=== PATIENT | male | born 1950 | race Caucasian/White ===

== ENCOUNTER 2019-02-08 14:15 | Emergency (ER) | payer MEDICARE, SELFPAY ==
[2019-02-08 14:27] VITALS: BP 163/72; PULSE 104; RESP 20; TEMP 37.2; O2SAT 100; BMI 23.6
[2019-02-08] MEDS: SODIUM CHLORIDE 0.9% 1,000 ML 1000 ML IV ×4 (14:51→18:27)
[2019-02-08] MEDS: ONDANSETRON 4 MG/2 ML INJ IV (14:51)
--- NOTE | 2019-02-08 14:56 | ED.NAVMDI ---
HPI - Nausea/Vomiting/Diarrhea General Chief complaint: Nausea/Vomiting/Diarrhea Stated complaint: vomiting x2 wks Time Seen by Provider: 02/08/19 14:21 Source: patient Mode of arrival: ambulatory Limitations: no limitations History of Present Illness HPI Narrative: Patient comes to the emergency department complaining of vomiting and watery diarrhea for the last 2 weeks. He states the symptoms started just after he returned from 2 weeks in the [place], after which he had been traveling in [place] and other parts of [place] for 2 and half months prior. Patient denies fevers or abdominal pain. He states that before the vomiting and diarrhea started, he had fatigue for several days. Patient states that he has not had any blood in his vomitus or diarrhea. He states he has lost quite a bit of weight, due to not being able to keep any food down. Patient states he can keep some liquids down occasionally, but not consistently. Patient denies any back pain or urinary symptoms. No headache. No focal neurologic deficits. No visual changes. Patient states he does not have any ongoing medical problems, though he was declared to be a borderline diabetic several years ago, and believes he had a TIA also several years ago. Patient states he was worked up in the [place] for these things, as he was there at that time, also. Patient denies taking any chronic medications for anything. He has [employer], and has spent much of his life living in [place] and [place] [facility]. Patient states this is the 1st time he sought any medical evaluation for this. Related Data Allergies Allergy/AdvReac Type Severity Reaction Status Date / Time No Known Drug Allergies Allergy Verified 02/08/19 14:45 Review of Systems Constitutional Denies chills, Denies fever(s), Denies lethargy and Denies weakness Eyes Denies change in vision, Denies eye discharge, Denies irritation and Denies loss of vision ENT Ears, Nose, Mouth, and Throat: Denies change in voice, Denies neck pain and Denies sore throat Cardiovascular Denies chest pain, Denies irregular heart rhythm, Denies lightheadedness, Denies palpitations, Denies dyspnea, Denies dyspnea on exertion and Denies orthopnea Respiratory Denies cough, Denies dyspnea, Denies dyspnea on exertion and Denies wheezing Gastrointestinal Gastrointestinal: Denies abdominal pain, Denies change in bowel habits, Reports diarrhea, Reports nausea and Reports vomiting Genitourinary Denies hematuria, Denies flank pain, Denies urinary incontinence and Denies urinary urgency Musculoskeletal Denies neck pain Integumentary/Breasts Denies pruritus, Denies erythema, Denies rash and Denies wounds Neurologic Denies confusion, Denies loss of vision and Denies weakness Psychiatric Denies anxiety, Denies confusion, Denies depression, Denies homicidal ideation and Denies suicidal ideation Endocrine Denies palpitations Hematologic/Lymphatic Denies easy bruising Allergic/Immunologic Denies wheezing [facility] Medical History TIA (transient ischemic attack) (Acute) Borderline diabetes mellitus (Acute) Surgical History (Updated 02/08/19 @ 15:10 by Bessy Elias MD) No pertinent past surgical history (Acute) Social History Smoking Status: Never smoker Social History Smoking Status: Never smoker Exam Initial Vital Signs Initial Vital Signs: Vital Signs Temperature 99.0 F 02/08/19 14:27 Pulse Rate 104 H 02/08/19 14:27 Respiratory Rate 20 02/08/19 14:27 Blood Pressure 163/72 H 02/08/19 14:27 Pulse Oximetry 100 02/08/19 14:27 Course Course Narrative: Patient was worked up with laboratory studies, EKG, chest x-ray, and ultimately, CT scan of the abdomen and pelvis. The patient was found to have an elevated white count [address]306, as well as renal failure with a BUN of 65 and a creatinine of 5.5. Patient's urinalysis was positive for infection and a non contaminated sample. His chest x-ray was clear. Patient was given IV fluid boluses back to back, and was treated with Zofran. Stool studies were ordered, but patient was unable to give us a stool sample. I spoke with Infectious Disease specialist at [facility], regarding any possible exotic infections to consider, given the patient's recent travel, but she did not have any specific ideas. I felt the patient should be transferred to a facility with Nephrology specialty service, as well as possibly Infectious Disease. I spoke with Dr. Quiroz at [facility] in [place], and he did agree to accept the patient in transfer. Per his request a CT scan of the abdomen and pelvis was done and results came back just as patient was being transferred. This did show mildly enlarged bilateral kidney with severe bilateral hydronephrosis and hydroureter extending all the way to the bilateral UVJ. The bladder wall was also found to be thickened and lobulated, suggesting chronic urinary outlet obstruction. Clearly, this patient will need to be evaluated by Urology while admitted, as well. The radiologist has not made any specific suggestion of cancer, though this possibility will most likely need to be addressed. I did speak with the patient regarding the plan to transfer and after initially objecting, the patient did ultimately agree to the transfer. Remained hemodynamically stable throughout his stay in the emergency department. Orders Ordered: ED Orders 02/08/19 14:46 Complete Blood Count AUTO DIFF Stat Comprehensive Metabolic Panel Stat Lipase Stat Partial Thromboplastin Time Stat Prothrombin Time INR Stat EKG-12 Lead Stat 02/08/19 14:57 Stool Culture Stat 02/08/19 15:35 Blood Culture Stat 02/08/19 16:00 Urinalysis and Microscopic Stat Urine Culture Stat 02/08/19 16:20 XR chest 2V Stat 02/08/19 17:10 CT kidney ureter bladder (KUB) Stat Sodium Chloride (Normal Saline 0.9%) 1,000 mls @ 1,000 mls/hr IV BOLUS ONE Stop: 02/08/19 19:25 Last Infusion: 02/08/19 18:27 Dose: 1,000 mls/hr Admin: 02/08/19 18:27 Dose: 1,000 mls/hr Discontinued Medications Sodium Chloride (Normal Saline 0.9%) 1,000 mls @ 1,000 mls/hr IV BOLUS ONE Stop: 02/08/19 15:46 Last Infusion: 02/08/19 15:45 Dose: 0 mls/hr Admin: 02/08/19 14:51 Dose: 1,000 mls/hr Sodium Chloride (Normal Saline 0.9%) 1,000 mls @ 1,000 mls/hr IV BOLUS ONE Stop: 02/08/19 15:56 Last Infusion: 02/08/19 16:37 Dose: 0 mls/hr Admin: 02/08/19 15:44 Dose: 1,000 mls/hr Sodium Chloride (Normal Saline 0.9%) 1,000 mls @ 1,000 mls/hr IV BOLUS ONE Stop: 02/08/19 17:19 Last Infusion: 02/08/19 17:30 Dose: 0 mls/hr Admin: 02/08/19 16:38 Dose: 1,000 mls/hr Ceftriaxone Sodium/Dextrose (Rocephin) 2 gm in 50 mls @ 100 mls/hr IV NOW ONE Stop: 02/08/19 17:41 Last Infusion: 02/08/19 17:53 Dose: 0 mls/hr Admin: 02/08/19 17:17 Dose: 100 mls/hr Ondansetron HCl (Zofran) 4 mg IV NOW ONE Stop: 02/08/19 14:48 Last Admin: 02/08/19 14:51 Dose: 4 mg Vital Signs - 8 hr 02/08/19 14:27 02/08/19 15:22 02/08/19 16:00 Temperature 99.0 F Pulse Rate 104 H 97 H 95 H Respiratory Rate 20 18 18 Blood Pressure 163/72 H Blood Pressure [Right Arm] 144/60 H 147/59 H Pulse Oximetry 100 98 95 02/08/19 18:36 Temperature Pulse Rate 96 H Respiratory Rate 20 Blood Pressure 160/63 H Blood Pressure [Right Arm] Pulse Oximetry 97 MDM - Nausea/Vomiting/Diarrhea Medical Records Attestation: I reviewed the patient's medical records. Lab Data Attestation: I reviewed the patient's lab results. Result diagrams: 02/08/19 14:46 02/08/19 14:46 Lab Results 02/08/19 02/08/19 02/08/19 Range/Units 14:46 14:46 14:46 WBC 23.9 H (4.5-11.0) X10^3/uL RBC 4.54 (4.5-5.9) X10^6/uL Hgb 12.4 L (13.5-17.5) g/dL Hct 38.4 L (41-53) % MCV 84.7 (80-100) fL MCH 27.5 (26-34) PG MCHC 32.4 (30-36) % RDW 12.7 (11.6-14.8) % Plt Count 420 H (150-400) X10^3/uL Neut % (Auto) 86.5 H (50-75) % Lymph % (Auto) 5.8 L (25-40) % [place] % (Auto) 7.4 (3-14) % Eos % (Auto) 0.1 L (2-4) % Baso % (Auto) 0.2 (0-2) % Neut # (Auto) 59962 H (1565-2586) /uL Lymph # (Auto) 1400 (7091-9788) /uL [place] # (Auto) 1800 H (0-900) /uL Eos # (Auto) 0 (0-450) /uL Baso # (Auto) 100 (0-100) /uL PT 13.5 H (10.1-12.7) SECONDS INR 1.2 (0.9-1.3) APTT 29 (26.4-36.2) SECONDS Sodium 133 L (137-145) mmol/L Potassium 5.7 H (3.4-5.1) mmol/L Chloride 97 L (98-107) mmol/L Carbon Dioxide 21 L (22-32) mmol/L BUN 65 H (9-20) mg/dL Creatinine 5.50 H (0.66-1.25) mg/dL Estimated GFR 10.4 L (>60) mL/min BUN/Creatinine Ratio 11.8 (6-22) Glucose 194 H (80-110) mg/dL Calcium 8.8 (8.4-10.2) mg/dL Total Bilirubin 0.5 (0.2-1.3) mg/dL AST 13 L (17-59) IU/L ALT 23 (21-72) IU/L Alkaline Phosphatase 111 (38-126) U/L Total Protein 8.2 (6.3-8.2) g/dL Albumin 4.0 (3.5-5.0) g/dL Globulin 4.2 H (1.7-4.1) g/dL Albumin/Globulin Ratio 1.0 (1.0-2.8) Lipase 102 (23-300) U/L Urine Color Urine Appearance Urine pH (4.5-8.0) Ur Specific [place] (1.000-1.035) Urine Protein (Negative) Urine Glucose (UA) (Negative) g/dL Urine Ketones (NEGATIVE) Urine Occult Blood (Negative) Urine Nitrate (Negative) Urine Bilirubin (NEGATIVE) Urine Urobilinogen (0.2) E.U./dL Ur Leukocyte Esterase (NEGATIVE) Urine RBC (0-5/HPF) Urine WBC (0-5/HPF) Ur Squamous Epith Cells Urine Bacteria (None) Ur Culture Indicated? 02/08/19 Range/Units 16:00 WBC (4.5-11.0) X10^3/uL RBC (4.5-5.9) X10^6/uL Hgb (13.5-17.5) g/dL Hct (41-53) % MCV (80-100) fL MCH (26-34) PG MCHC (30-36) % RDW (11.6-14.8) % Plt Count (150-400) X10^3/uL Neut % (Auto) (50-75) % Lymph % (Auto) (25-40) % [place] % (Auto) (3-14) % Eos % (Auto) (2-4) % Baso % (Auto) (0-2) % Neut # (Auto) (8487-5709) /uL Lymph # (Auto) (7593-8934) /uL Boone # (Auto) (0-900) /uL Eos # (Auto) (0-450) /uL Baso # (Auto) (0-100) /uL PT (10.1-12.7) SECONDS INR (0.9-1.3) APTT (26.4-36.2) SECONDS Sodium (137-145) mmol/L Potassium (3.4-5.1) mmol/L Chloride (98-107) mmol/L Carbon Dioxide (22-32) mmol/L BUN (9-20) mg/dL Creatinine (0.66-1.25) mg/dL Estimated GFR (>60) mL/min BUN/Creatinine Ratio (6-22) Glucose (80-110) mg/dL Calcium (8.4-10.2) mg/dL Total Bilirubin (0.2-1.3) mg/dL AST (17-59) IU/L ALT (21-72) IU/L Alkaline Phosphatase (38-126) U/L Total Protein (6.3-8.2) g/dL Albumin (3.5-5.0) g/dL Globulin (1.7-4.1) g/dL Albumin/Globulin Ratio (1.0-2.8) Lipase (23-300) U/L Urine Color Yellow Urine Appearance Cloudy Urine pH 6.0 (4.5-8.0) Ur Specific [place] 1.010 (1.000-1.035) Urine Protein 1+ H (Negative) Urine Glucose (UA) Negative (Negative) g/dL Urine Ketones Negative (NEGATIVE) Urine Occult Blood 1+ H (Negative) Urine Nitrate Negative (Negative) Urine Bilirubin Negative (NEGATIVE) Urine Urobilinogen 0.2 (0.2) E.U./dL Ur Leukocyte Esterase 3+ H (NEGATIVE) Urine RBC None seen (0-5/HPF) Urine WBC >100/hpf H (0-5/HPF) Ur Squamous Epith Cells 0-1 /hpf Urine Bacteria Many (>30) H (None) Ur Culture Indicated? Specimen cultured Imaging Data CT scan - abdomen: Radiologist's impression: PROCEDURE: CT KIDNEY URETER BLADDER (KUB) INDICATIONS: vomiting, diarrhea, exotic travel TECHNIQUE: Noncontrast 5 mm thick sections acquired from the diaphragms to the symphysis. 5 mm thick coronal and sagittal reformats were then performed. For radiation dose reduction, the following was used: automated exposure control, adjustment of mA and/or kV according to patient size. COMPARISON: None. FINDINGS: Image quality: Excellent. Lung bases: Lung bases are clear. Heart size is normal. Urinary system: Both kidneys are enlarged in size. Severe bilateral hydronephrosis and mild bilateral perinephric fat stranding is seen. No obstructing renal stone is identified. Bilateral ureters are diffusely dilated throughout their expected courses. Lobulated urinary bladder wall with diffuse wall thickening is seen, no discrete bladder wall mass is noted. No calcified bladder stones. Other solid organs: Liver is normal in size. Gallbladder is within normal limits. Pancreas is normal in contours. Spleen is normal in size. No adrenal nodules. Peritoneum and bowel: Unenhanced bowel loops demonstrate normal wall thickness and caliber. No free fluid or air. Appendix is visualized and is within normal limits. Nodes and vessels: No retroperitoneal or mesenteric adenopathy by size criteria. Aorta and inferior vena cava are normal in caliber. Abdominal wall: No ventral hernias. Pelvis: No free pelvic fluid. No inguinal hernias or adenopathy. Bones: No suspicious bony lesions. No vertebral body compression fractures. IMPRESSION: 1. Mildly enlarged bilateral kidney with severe bilateral hydronephrosis and hydroureter extending to the level of bilateral UVJs. No obstructing renal stone or ureteral stone is seen. Lobulated bladder contour with diffuse wall thickening. Finding is suggestive of chronic urinary outlet obstruction. 2. No bowel obstruction. Normal appendix. No free fluid or free air. Dictated by: Randolph Young M.D. on 02/08/2019 at 17:50 Approved by: Randolph Young M.D. on 02/08/2019 at 17:58 Chest x-ray: Attestation: I personally reviewed and interpreted this imaging study as follows: My impression: No acute disease Radiologist's impression: PROCEDURE: XR CHEST 2V INDICATIONS: cough TECHNIQUE: 2 views of the chest were acquired. COMPARISON: None. FINDINGS: Surgical changes and devices: None. Lungs and pleura: Lungs are clear. No pleural effusions or pneumothorax. Mediastinum: Mediastinal contours are normal. Heart size is normal. Bones and chest wall: No suspicious bony abnormalities. Soft tissues appear unremarkable. IMPRESSION: No acute cardiopulmonary disease process. Dictated by: Ary Harris MD, PhD on 02/08/2019 at 16:37 Approved by: Ary Harris MD, PhD on 02/08/2019 at 16:38 ECG Data Attestation: I personally reviewed and interpreted this ECG as follows: (See below) Interpretation: Twelve lead EKG performed February 08, 2019 at 2:49 p.m., as follows: Regular ventricular rhythm with a rate of 104 beats per minute P waves present and correlating well with QRS complexes QRS duration 89 millisecond QTC interval 370 millisecond Normal axis No ST T wave changes Interpretation: Sinus tachycardia; disagree with computer interpretation of atrial flutter; abnormal EKG as interpreted by ED MD. Discharge Plan Departure Interventions: ED Discharge Assessment Last Done: 02/08/19 18:36
[2019-02-08 15:02] LABS: Add Manual Diff / Slide Review NO; Basophils Absolute Auto 100 /uL (0-100); Basophils Percent Auto 0.2 % (0-2); Eosinophils Absolute Auto 0 /uL (0-450); Eosinophils Percent Auto 0.1 % (2-4); Hematocrit 38.4 % (41-53); Hemoglobin 12.4 g/dL (13.5-17.5); Lymphocytes Absolute Auto 1400 /uL (1100-4500); Lymphocytes Percent Auto 5.8 % (25-40); Mean Corpuscular HGB Conc 32.4 % (30-36); Mean Corpuscular Hemoglobin 27.5 PG (26-34); Mean Corpuscular Volume 84.7 fL (80-100); Monocytes Absolute Auto 1800 /uL (0-900); Monocytes Percent Auto 7.4 % (3-14); Neutrophils Absolute Auto 20600 /uL (1500-7000); Neutrophils Percent Auto 86.5 % (50-75); Platelet Count 420 X10^3/uL (150-400); Red Blood Cell Count 4.54 X10^6/uL (4.5-5.9); Red Cell Distribution Width 12.7 % (11.6-14.8); White Blood Cell Count 23.9 X10^3/uL (4.5-11.0)
[2019-02-08 15:03] LABS: INR 1.2 (0.9-1.3); Prothrombin Time 13.5 SECONDS (10.1-12.7)
[2019-02-08 15:06] LABS: PTT Partial Thromboplastin Tim 29 SECONDS (26.4-36.2)
--- NOTE | 2019-02-08 15:07 | ED_ITS ---
HPI - Nausea/Vomiting/Diarrhea General Chief complaint: Nausea/Vomiting/Diarrhea Stated complaint: vomiting x2 wks Time Seen by Provider: 02/08/19 14:21 Source: patient Mode of arrival: ambulatory Limitations: no limitations History of Present Illness HPI Narrative: Patient comes to the emergency department complaining of vomiting and watery diarrhea for the last 2 weeks. He states the symptoms started just after he returned from 2 weeks in the [place], after which he had been traveling in [place] and other parts of [place] for 2 and half months prior. Patient denies fevers or abdominal pain. He states that before the vomiting and diarrhea started, he had fatigue for several days. Patient states that he has not had any blood in his vomitus or diarrhea. He states he has lost quite a bit of weight, due to not being able to keep any food down. Patient states he can keep some liquids down occasionally, but not consistently. Patient denies any back pain or urinary symptoms. No headache. No focal neurologic deficits. No visual changes. Patient states he does not have any ongoing medical problems, though he was declared to be a borderline diabetic several years ago, and believes he had a TIA also several years ago. Patient states he was worked up in the [place] for these things, as he was there at that time, also. Patient denies taking any chronic medications for anything. He has [employer], and has spent much of his life living in [place] and [facility]. Patient states this is the 1st time he sought any medical evaluation for this. Related Data Allergies Allergy/AdvReac Type Severity Reaction Status Date / Time No Known Drug Allergies Allergy Verified 02/08/19 14:45 Review of Systems Constitutional Denies chills, Denies fever(s), Denies lethargy and Denies weakness Eyes Denies change in vision, Denies eye discharge, Denies irritation and Denies loss of vision ENT Ears, Nose, Mouth, and Throat: Denies change in voice, Denies neck pain and Denies sore throat Cardiovascular Denies chest pain, Denies irregular heart rhythm, Denies lightheadedness, Denies palpitations, Denies dyspnea, Denies dyspnea on exertion and Denies orthopnea Respiratory Denies cough, Denies dyspnea, Denies dyspnea on exertion and Denies wheezing Gastrointestinal Gastrointestinal: Denies abdominal pain, Denies change in bowel habits, Reports diarrhea, Reports nausea and Reports vomiting Genitourinary Denies hematuria, Denies flank pain, Denies urinary incontinence and Denies uri nary urgency Musculoskeletal Denies neck pain Integumentary/Breasts Denies pruritus, Denies erythema, Denies rash and Denies wounds Neurologic Denies confusion, Denies loss of vision and Denies weakness Psychiatric Denies anxiety, Denies confusion, Denies depression, Denies homicidal ideation and Denies suicidal ideation Endocrine Denies palpitations Hematologic/Lymphatic Denies easy bruising Allergic/Immunologic Denies wheezing [facility] Medical History TIA (transient ischemic attack) (Acute) Borderline diabetes mellitus (Acute) Surgical History (Updated 02/08/19 @ 15:10 by Bessy Elias MD) No pertinent past surgical history (Acute) Social History Smoking Status: Never smoker Social History Smoking Status: Never smoker Exam Initial Vital Signs Initial Vital Signs: Vital Signs Temperature 99.0 F 02/08/19 14:27 Pulse Rate 104 H 02/08/19 14:27 Respiratory Rate 20 02/08/19 14:27 Blood Pressure 163/72 H 02/08/19 14:27 Pulse Oximetry 100 02/08/19 14:27 Course Course Narrative: Patient was worked up with laboratory studies, EKG, chest x- ray, and ultimately, CT scan of the abdomen and pelvis. The patient was found to have an elevated white count [address]04, as well as renal failure with a BUN of 65 and a creatinine of 5.5. Patient's urinalysis was positive for infection and a non contaminated sample. His chest x-ray was clear. Patient was given IV fluid boluses back to back, and was treated with Zofran. Stool studies were ordered, but patient was unable to give us a stool sample. I spoke with Infectious Disease specialist at [facility], regarding any possible exotic infections to consider, given the patient's recent travel, but she did not have any specific ideas. I felt the patient should be transferred to a facility with Nephrology specialty service, as well as possibly Infectious Disease. I spoke with Dr. Quiroz at [facility] in [place], and he did agree to accept the patient in transfer. Per his request a CT scan of the abdomen and pelvis was done and results came back just as patient was being transferred. This did show mildly enlarged bilateral kidney with severe bilateral hydronephrosis and hydroureter extending all the way to the bilateral UVJ. The bladder wall was also found to be thickened and lobulated, suggesting chronic urinary outlet obstruction. Clearly, this patient will need to be evaluated by Urology while admitted, as well. The radiologist has not made any specific suggestion of cancer, though this possibility will most likely need to be addressed. I did speak with the patient regarding the plan to transfer and after initially objecting, the patient did ultimately agree to the transfer. Remained hemodynamically stable throughout his stay in the emergency department. Orders Ordered: ED Orders 02/08/19 14:46 Complete Blood Count AUTO DIFF Stat Comprehensive Metabolic Panel Stat Lipase Stat Partial Thromboplastin Time Stat Prothrombin Time INR Stat EKG-12 Lead Stat 02/08/19 14:57 Stool Culture Stat 02/08/19 15:35 Blood Culture Stat 02/08/19 16:00 Urinalysis and Microscopic Stat Urine Culture Stat 02/08/19 16:20 XR chest 2V Stat 02/08/19 17:10 CT kidney ureter bladder (KUB) Stat Sodium Chloride (Normal Saline 0.9%) 1,000 mls @ 1,000 mls/hr IV BOLUS ONE Stop: 02/08/19 19:25 Last Infusion: 02/08/19 18:27 Dose: 1,000 mls/hr Admin: 02/08/19 18:27 Dose: 1,000 mls/hr Discontinued Medications Sodium Chloride (Normal Saline 0.9%) 1,000 mls @ 1,000 mls/hr IV BOLUS ONE Stop: 02/08/19 15:46 Last Infusion: 02/08/19 15:45 Dose: 0 mls/hr Admin: 02/08/19 14:51 Dose: 1,000 mls/hr Sodium Chloride (Normal Saline 0.9%) 1,000 mls @ 1,000 mls/hr IV BOLUS ONE Stop: 02/08/19 15:56 Last Infusion: 02/08/19 16:37 Dose: 0 mls/hr Admin: 02/08/19 15:44 Dose: 1,000 mls/hr Sodium Chloride (Normal Saline 0.9%) 1,000 mls @ 1,000 mls/hr IV BOLUS ONE Stop: 02/08/19 17:19 Last Infusion: 02/08/19 17:30 Dose: 0 mls/hr Admin: 02/08/19 16:38 Dose: 1,000 mls/hr Ceftriaxone Sodium/Dextrose (Rocephin) 2 gm in 50 mls @ 100 mls/hr IV NOW ONE Stop: 02/08/19 17:41 Last Infusion: 02/08/19 17:53 Dose: 0 mls/hr Admin: 02/08/19 17:17 Dose: 100 mls/hr Ondansetron HCl (Zofran) 4 mg IV NOW ONE Stop: 02/08/19 14:48 Last Admin: 02/08/19 14:51 Dose: 4 mg Vital Signs - 8 hr 02/08/19 14:27 02/08/19 15:22 02/08/19 16:00 Temperature 99.0 F Pulse Rate 104 H 97 H 95 H Respiratory Rate 20 18 18 Blood Pressure 163/72 H Blood Pressure [Right Arm] 144/60 H 147/59 H Pulse Oximetry 100 98 95 02/08/19 18:36 Temperature Pulse Rate 96 H Respiratory Rate 20 Blood Pressure 160/63 H Blood Pressure [Right Arm] Pulse Oximetry 97 MDM - Nausea/Vomiting/Diarrhea Medical Records Attestation: I reviewed the patient's medical records. Lab Data Attestation: I reviewed the patient's lab results. Result diagrams: 02/08/19 14:46 02/08/19 14:46 Lab Results 02/08/19 02/08/19 02/08/19 Range/Units 14:46 14:46 14:46 WBC 23.9 H (4.5-11.0) X10^3/uL RBC 4.54 (4.5-5.9) X10^6/uL Hgb 12.4 L (13.5-17.5) g/dL Hct 38.4 L (41-53) % MCV 84.7 (80-100) fL MCH 27.5 (26-34) PG MCHC 32.4 (30-36) % RDW 12.7 (11.6-14.8) % Plt Count 420 H (150-400) X10^3/uL Neut % (Auto) 86.5 H (50-75) % Lymph % (Auto) 5.8 L (25-40) % [place]bot % (Auto) 7.4 (3-14) % Eos % (Auto) 0.1 L (2-4) % Baso % (Auto) 0.2 (0-2) % Neut # (Auto) 35404 H (3534-1244) /uL Lymph # (Auto) 1400 (8572-3252) /uL Talbot # (Auto) 1800 H (0-900) /uL Eos # (Auto) 0 (0-450) /uL Baso # (Auto) 100 (0-100) /uL PT 13.5 H (10.1-12.7) SECONDS INR 1.2 (0.9-1.3) APTT 29 (26.4-36.2) SECONDS Sodium 133 L (137-145) mmol/L Potassium 5.7 H (3.4-5.1) mmol/L Chloride 97 L (98-107) mmol/L Carbon Dioxide 21 L (22-32) mmol/L BUN 65 H (9-20) mg/dL Creatinine 5.50 H (0.66-1.25) mg/dL Estimated GFR 10.4 L (>60) mL/min BUN/Creatinine Ratio 11.8 (6-22) Glucose 194 H (80-110) mg/dL Calcium 8.8 (8.4-10.2) mg/dL Total Bilirubin 0.5 (0.2-1.3) mg/dL AST 13 L (17-59) IU/L ALT 23 (21-72) IU/L Alkaline Phosphatase 111 (38-126) U/L Total Protein 8.2 (6.3-8.2) g/dL Albumin 4.0 (3.5-5.0) g/dL Globulin 4.2 H (1.7-4.1) g/dL Albumin/Globulin Ratio 1.0 (1.0-2.8) Lipase 102 (23-300) U/L Urine Color Urine Appearance Urine pH (4.5-8.0) Ur Specific [place] (1.000-1.035) Urine Protein (Negative) Urine Glucose (UA) (Negative) g/dL Urine Ketones (NEGATIVE) Urine Occult Blood (Negative) Urine Nitrate (Negative) Urine Bilirubin (NEGATIVE) Urine Urobilinogen (0.2) E.U./dL Ur Leukocyte Esterase (NEGATIVE) Urine RBC (0-5/HPF) Urine WBC (0-5/HPF) Ur Squamous Epith Cells Urine Bacteria (None) Ur Culture Indicated? 02/08/19 Range/Units 16:00 WBC (4.5-11.0) X10^3/uL RBC (4.5-5.9) X10^6/uL Hgb (13.5-17.5) g/dL Hct (41-53) % MCV (80-100) fL MCH (26-34) PG MCHC (30-36) % RDW (11.6-14.8) % Plt Count (150-400) X10^3/uL Neut % (Auto) (50-75) % Lymph % (Auto) (25-40) % [place] % (Auto) (3-14) % Eos % (Auto) (2-4) % Baso % (Auto) (0-2) % Neut # (Auto) (7044-6828) /uL Lymph # (Auto) (8814-2689) /uL Talbot # (Auto) (0-900) /uL Eos # (Auto) (0-450) /uL Baso # (Auto) (0-100) /uL PT (10.1-12.7) SECONDS INR (0.9-1.3) APTT (26.4-36.2) SECONDS Sodium (137-145) mmol/L Potassium (3.4-5.1) mmol/L Chloride (98-107) mmol/L Carbon Dioxide (22-32) mmol/L BUN (9-20) mg/dL Creatinine (0.66-1.25) mg/dL Estimated GFR (>60) mL/min BUN/Creatinine Ratio (6-22) Glucose (80-110) mg/dL Calcium (8.4-10.2) mg/dL Total Bilirubin (0.2-1.3) mg/dL AST (17-59) IU/L ALT (21-72) IU/L Alkaline Phosphatase (38-126) U/L Total Protein (6.3-8.2) g/dL Albumin (3.5-5.0) g/dL Globulin (1.7-4.1) g/dL Albumin/Globulin Ratio (1.0-2.8) Lipase (23-300) U/L Urine Color Yellow Urine Appearance Cloudy Urine pH 6.0 (4.5-8.0) Ur Specific [place] 1.010 (1.000-1.035) Urine Protein 1+ H (Negative) Urine Glucose (UA) Negative (Negative) g/dL Urine Ketones Negative (NEGATIVE) Urine Occult Blood 1+ H (Negative) Urine Nitrate Negative (Negative) Urine Bilirubin Negative (NEGATIVE) Urine Urobilinogen 0.2 (0.2) E.U./dL Ur Leukocyte Esterase 3+ H (NEGATIVE) Urine RBC None seen (0-5/HPF) Urine WBC >100/hpf H (0-5/HPF) Ur Squamous Epith Cells 0-1 /hpf Urine Bacteria Many (>30) H (None) Ur Culture Indicated? Specimen cultured Imaging Data CT scan - abdomen: Radiologist's impression: PROCEDURE: CT KIDNEY URETER BLADDER (KUB) INDICATIONS: vomiting, diarrhea, exotic travel TECHNIQUE: Noncontrast 5 mm thick sections acquired from the diaphragms to the symphysis. 5 mm thick coronal and sagittal reformats were then performed. For radiation dose reduction, the following was used: automated exposure control, adjustment of mA and/or kV according to patient size. COMPARISON: None. FINDINGS: Image quality: Excellent. Lung bases: Lung bases are clear. Heart size is normal. Urinary system: Both kidneys are enlarged in size. Severe bilateral hydronephrosis and mild bilateral perinephric fat stranding is seen. No obstructing renal stone is identified. Bilateral ureters are diffusely dilated throughout their expected courses. Lobulated urinary bladder wall with diffuse wall thickening is seen, no discrete bladder wall mass is noted. No calcified bladder stones. Other solid organs: Liver is normal in size. Gallbladder is within normal limits. Pancreas is normal in contours. Spleen is normal in size. No adrenal nodules. Peritoneum and bowel: Unenhanced bowel loops demonstrate normal wall thickness and caliber. No free fluid or air. Appendix is visualized and is within normal limits. Nodes and vessels: No retroperitoneal or mesenteric adenopathy by size criteria. Aorta and inferior vena cava are normal in caliber. Abdominal wall: No ventral hernias. Pelvis: No free pelvic fluid. No inguinal hernias or adenopathy. Bones: No suspicious bony lesions. No vertebral body compression fractures. IMPRESSION: 1. Mildly enlarged bilateral kidney with severe bilateral hydronephrosis and hydroureter extending to the level of bilateral UVJs. No obstructing renal stone or ureteral stone is seen. Lobulated bladder contour with diffuse wall thickening. Finding is suggestive of chronic urinary outlet obstruction. 2. No bowel obstruction. Normal appendix. No free fluid or free air. Dictated by: Randolph Young M.D. on 02/08/2019 at 17:50 Approved by: Randolph Young M.D. on 02/08/2019 at 17:58 Chest x-ray: Attestation: I personally reviewed and interpreted this imaging study as follows: My impression: No acute disease Radiologist's impression: PROCEDURE: XR CHEST 2V INDICATIONS: cough TECHNIQUE: 2 views of the chest were acquired. COMPARISON: None. FINDINGS: Surgical changes and devices: None. Lungs and pleura: Lungs are clear. No pleural effusions or pneumothorax. Mediastinum: Mediastinal contours are normal. Heart size is normal. Bones and chest wall: No suspicious bony abnormalities. Soft tissues appear unremarkable. IMPRESSION: No acute cardiopulmonary disease process. Dictated by: Ary Harris MD, PhD on 02/08/2019 at 16:37 Approved by: Ary Harris MD, PhD on 02/08/2019 at 16:38 ECG Data Attestation: I personally reviewed and interpreted this ECG as follows: (See below) Interpretation: Twelve lead EKG performed February 08, 2019 at 2:49 p.m., as follows: Regular ventricular rhythm with a rate of 104 beats per minute P waves present and correlating well with QRS complexes QRS duration 89 millisecond QTC interval 370 millisecond Normal axis No ST T wave changes Interpretation: Sinus tachycardia; disagree with computer interpretation of atrial flutter; abnormal EKG as interpreted by ED MD. Discharge Plan Departure Interventions: ED Discharge Assessment Last Done: 02/08/19 18:36
[2019-02-08 15:08] LABS: Alanine Aminotransferase 23 IU/L (21-72); Alkaline Phosphatase 111 U/L (38-126); Aspartate Aminotransferase 13 IU/L (17-59); BUN Creatinine Ratio 11.8 (6-22); Bilirubin Total 0.5 mg/dL (0.2-1.3); Blood Urea Nitrogen 65 mg/dL (9-20); Calcium 8.8 mg/dL (8.4-10.2); Carbon Dioxide 21 mmol/L (22-32); Chloride 97 mmol/L (98-107); Estimated Glomerular Filt Rate 10.4 mL/min (>60); Globulin 4.2 g/dL (1.7-4.1); Glucose 194 mg/dL (80-110); HEMOLYSIS < 15 (0-50); Lipase 102 U/L (23-300); Sodium 133 mmol/L (137-145); Total Protein 8.2 g/dL (6.3-8.2)
[2019-02-08 15:09] LABS: Potassium 5.7 mmol/L (3.4-5.1)
[2019-02-08 15:22] VITALS: BP 144/60; PULSE 97; RESP 18; O2SAT 98
[2019-02-08 16:00] VITALS: BP 147/59; PULSE 95; RESP 18; O2SAT 95
[2019-02-08 16:04] LABS: RBC Urine None Seen (0-5/HPF)
[2019-02-08 16:17] LABS: Appearance Urine UA CLOUDY; Bilirubin Urine UA NEGATIVE (NEGATIVE); Color Urine UA YELLOW; Glucose Urine UA NEGATIVE (Negative); Ketones Urine UA NEGATIVE (NEGATIVE); Leukocyte Esterase Urine UA 3+ (NEGATIVE); Nitrite Urine UA NEGATIVE (Negative); Occult Blood Urine UA 1+ (Negative); Protein Urine UA 1+ (Negative); Urobilinogen Urine UA 0.2 E.U./dL (0.2)
--- NOTE | 2019-02-08 16:20 | DI.RAD.S_ITS ---
PROCEDURE: XR CHEST 2V INDICATIONS: cough TECHNIQUE: 2 views of the chest were acquired. COMPARISON: None. FINDINGS: Surgical changes and devices: None. Lungs and pleura: Lungs are clear. No pleural effusions or pneumothorax. Mediastinum: Mediastinal contours are normal. Heart size is normal. Bones and chest wall: No suspicious bony abnormalities. Soft tissues appear unremarkable. IMPRESSION: No acute cardiopulmonary disease process. Dictated by: Ary Harris MD, PhD on 02/08/2019 at 16:37 Approved by: Ary Harris MD, PhD on 02/08/2019 at 16:38
[2019-02-08 16:25] LABS: WBC Urine >100/HPF (0-5/HPF)
[2019-02-08 16:26] LABS: Bacteria Urine Many (>30); Culture Indicated Urine Specimen Cultured; Squamous Epithelial Cell Urine 0-1 /HPF
--- NOTE | 2019-02-08 17:10 | DI.CT.S_ITS ---
PROCEDURE: CT KIDNEY URETER BLADDER (KUB) INDICATIONS: vomiting, diarrhea, exotic travel TECHNIQUE: Noncontrast 5 mm thick sections acquired from the diaphragms to the symphysis. 5 mm thick coronal and sagittal reformats were then performed. For radiation dose reduction, the following was used: automated exposure control, adjustment of mA and/or kV according to patient size. COMPARISON: None. FINDINGS: Image quality: Excellent. Lung bases: Lung bases are clear. Heart size is normal. Urinary system: Both kidneys are enlarged in size. Severe bilateral hydronephrosis and mild bilateral perinephric fat stranding is seen. No obstructing renal stone is identified. Bilateral ureters are diffusely dilated throughout their expected courses. Lobulated urinary bladder wall with diffuse wall thickening is seen, no discrete bladder wall mass is noted. No calcified bladder stones. Other solid organs: Liver is normal in size. Gallbladder is within normal limits. Pancreas is normal in contours. Spleen is normal in size. No adrenal nodules. Peritoneum and bowel: Unenhanced bowel loops demonstrate normal wall thickness and caliber. No free fluid or air. Appendix is visualized and is within normal limits. Nodes and vessels: No retroperitoneal or mesenteric adenopathy by size criteria. Aorta and inferior vena cava are normal in caliber. Abdominal wall: No ventral hernias. Pelvis: No free pelvic fluid. No inguinal hernias or adenopathy. Bones: No suspicious bony lesions. No vertebral body compression fractures. IMPRESSION: 1. Mildly enlarged bilateral kidney with severe bilateral hydronephrosis and hydroureter extending to the level of bilateral UVJs. No obstructing renal stone or ureteral stone is seen. Lobulated bladder contour with diffuse wall thickening. Finding is suggestive of chronic urinary outlet obstruction. 2. No bowel obstruction. Normal appendix. No free fluid or free air. Dictated by: Randolph Young M.D. on 02/08/2019 at 17:50 Approved by: Randolph Young M.D. on 02/08/2019 at 17:58
[2019-02-08] MEDS: CEFTRIAXONE 2 GM/50 ML FROZ.PIGGY IV (17:17)
[2019-02-08 18:36] VITALS: BP 160/63; PULSE 96; RESP 20; O2SAT 97
== END 2019-02-08 18:40 | disposition short-term general hospital (02) ==
PROVIDERS: Emergency Provider Emergency Medicine
DX: N17.9 Acute kidney failure, unspecified (principal)
CPT/HCPCS: 36415; 36591; 51798; 71046; 74176; 80053; 81001; 83690; 85025; 85610; 85730; 87040; 87077; 87086; 87186; 93005; 96361; 96365; 96375; 99285; J0696; J2405

== ENCOUNTER 2020-10-24 14:00 | Emergency (ER) | payer OTHER, MEDICAID, SELFPAY ==
[2020-10-24] VITALS (11 sets, daily range): BP systolic 148–173; BP diastolic 78–94; PULSE 95–118; RESP 15–22; TEMP 36.2–37; O2SAT 95–99; BMI 27.3
--- NOTE | 2020-10-24 14:54 | ED.MALEGU ---
HPI - Male Genitourinary <Neema Mark DO - Last Filed: 11/04/20 06:54> General Chief complaint: Urogenital-Male Stated complaint: PROSTATE PROBLEMS Time Seen by Provider: 10/24/20 14:19 Source: patient Mode of arrival: Family Vehicle Limitations: no limitations History of Present Illness HPI Narrative: Patient is a 70-year-old male who presents with ?prostate issue.? He states he was hospitalized about a year ago for prostate problems he was told he has a large prostate and possibly borderline type 2 diabetic. He states that from his previous hospital [facility] 70 was given supplies to do self catheterization as needed. He started noticing a few days ago she was having difficulty with urination soon started using self-catheterization. He then started noticing that his urine was cloudy and he had dysuria. He is unable to empty his bladder completely and he needs to wear depends because he dribbles. He is having some mild abdominal pain suprapubic area. He overall feels weak and dehydrated he denies any nausea or vomiting. He says his voice is hoarse but that happens when he gets dehydrated. He has previously worked has a previous in [employer] for 35 years Related Data Home Medications Medication Instructions Recorded Confirmed No Known Home Medications 10/24/20 11/03/20 Allergies Allergy/AdvReac Type Severity Reaction Status Date / Time No Known Drug Allergies Allergy Verified 10/24/20 14:32 Review of Systems <Neema Mark DO - Last Filed: 11/04/20 06:54> Review of Systems ROS Unobtainable: All systems reviewed & are unremarkable except as noted in HPI and below Constitutional Constitutional: Reports as per HPI, Reports fatigue, Denies frequent falls and Reports poor appetite ENT Ears, Nose, Mouth, and Throat: Denies change in voice, Denies dizziness, Reports hoarseness, Denies neck pain and Denies sore throat Cardiovascular Cardiovascular: Denies chest pain, Denies irregular heart rhythm, Denies lightheadedness, Denies palpitations, Denies dyspnea, Denies dyspnea on exertion and Denies orthopnea Respiratory Respiratory: Denies cough, Denies dyspnea, Denies dyspnea on exertion and Denies wheezing Genitourinary Genitourinary: Reports as per HPI, Reports difficulty urinating, Reports dysuria and Reports urinary frequency Genitourinary: Reports as per HPI, Reports urinary frequency and Reports dysuria Musculoskeletal Musculoskeletal: Denies back pain, Denies neck pain and Denies numbness Integumentary/Breasts Skin/Breast: Denies pruritus, Denies erythema, Denies rash and Denies wounds Neurologic Neurologic: Denies behavioral changes, Denies confusion, Denies dizziness, Denies frequent falls and Denies numbness Psychiatric Psychiatric: Denies behavioral changes and Denies confusion Endocrine Endocrine: Reports fatigue and Denies palpitations Allergic/Immunologic Allergic/Immunologic: Denies wheezing Patient History <Neema Mark DO - Last Filed: 11/04/20 06:54> Medical History (Updated 11/03/20 @ 13:47 by Albert Ruby DO) Borderline diabetes mellitus BPH (benign prostatic hyperplasia) CKD (chronic kidney disease) TIA (transient ischemic attack) Surgical History No pertinent past surgical history Social History household members: none Smoking Status: Never smoker alcohol intake: current Smoking Status: Never smoker alcohol intake frequency: 0-2 drinks per day Substance Use Type: does not use Exam <Neema Mark DO - Last Filed: 11/04/20 06:54> Initial Vital Signs Initial Vital Signs: Vital Signs Temperature 97.2 F L 10/24/20 14:15 Pulse Rate 118 H 10/24/20 14:15 Respiratory Rate 22 10/24/20 14:15 Blood Pressure 148/78 H 10/24/20 14:15 Pulse Oximetry 98 10/24/20 14:15 GENERAL: Alert alert pleasant 70-year-old male and in no acute distress. HEENT: Head atraumatic,EOMI, pupils reactive, face symmetric, moist mucous membranes CARDIOVASCULAR: Regular rate and rhythm without murmurs, rubs or gallops. RESPIRATORY: Breath sounds equal bilaterally, no wheezes rales or rhonchi. ABDOMEN: Soft, mild suprapubic pain no guarding or rebound EXTREMITIES: Normal range of motion, no clubbing or edema. Neurovascularly intact NEUROLOGICAL: Alert and oriented x4.Normal gait and speech. Cranial nerves II through XII grossly intact. SKIN: Warm, dry, no laceration, no petechiae, no rashes or lesions. <Qamar Giron DO - Last Filed: 11/03/20 08:54> Initial Vital Signs Initial Vital Signs: Vital Signs Temperature 97.2 F L 10/24/20 14:15 Pulse Rate 118 H 10/24/20 14:15 Respiratory Rate 22 10/24/20 14:15 Blood Pressure 148/78 H 10/24/20 14:15 Pulse Oximetry 98 10/24/20 14:15 Course <Neema Mark, DO - Last Filed: 11/04/20 06:54> Orders Ordered: Discontinued Medications Sodium Chloride (Normal Saline 0.9%) 1,000 mls @ 1,000 mls/hr IV CONT ZBIGNIEW Last Infusion: 10/24/20 16:40 Dose: 0 mls/hr Documented by: Admin: 10/24/20 15:37 Dose: 1,000 mls/hr Documented by: MATILDAANCE Ceftriaxone Sodium/Dextrose (Rocephin) 1 gm in 50 mls @ 100 mls/hr IV NOW ONE Stop: 10/24/20 16:09 Last Infusion: 10/24/20 17:40 Dose: 0 mls/hr Documented by: Admin: 10/24/20 16:33 Dose: 100 mls/hr Documented by: FHUDSON Vital Signs Vital signs: Vital Signs - 8 hr 10/24/20 20:30 10/24/20 20:40 10/24/20 21:00 Pulse Rate 95 H Respiratory Rate Blood Pressure 172/79 H 163/94 H Pulse Oximetry 98 95 10/24/20 21:10 10/24/20 21:14 10/24/20 21:30 Pulse Rate 96 H 99 H 98 H Respiratory Rate 15 Blood Pressure 163/94 H Pulse Oximetry 98 97 <Qamar Giron, DO - Last Filed: 11/03/20 08:54> Course Course Narrative: Patient received in signout from Dr. Mark. She has already spoken with Nephrology at [facility], currently awaiting a call back from [facility] hospitalist. I have performed an independent history and physical and have no significant additions. Awaiting records from [place]. He's having no pain and is resting comfortably. I have discussed this case with the on-call hospitalist at [facility], he is happy to accept this patient transfer. I did discuss that the patient refused any more attempts at Harper catheter here in the department, hospitalists will consult Urology upon his arrival to [facility]. Fractional Excretion of Sodium (FENa) from [facility] on 10/24/2020 All calculations should be rechecked by clinician prior to use RESULT SUMMARY: 4.6 % FENa Post-Renal/Obstructive e.g. BPH, bladder stone, bilateral ureter obstruction INPUTS: Serum sodium ?> 131 mEq/L Serum creatinine ?> 6.58 mg/dL Urine sodium ?> 60 mEq/L Urine creatinine ?> 64.9 mg/dL Orders Ordered: Discontinued Medications Sodium Chloride (Normal Saline 0.9%) 1,000 mls @ 1,000 mls/hr IV CONT ZBIGNIEW Last Infusion: 10/24/20 16:40 Dose: 0 mls/hr Documented by: Admin: 10/24/20 15:37 Dose: 1,000 mls/hr Documented by: CVANCE Ceftriaxone Sodium/Dextrose (Rocephin) 1 gm in 50 mls @ 100 mls/hr IV NOW ONE Stop: 10/24/20 16:09 Last Infusion: 10/24/20 17:40 Dose: 0 mls/hr Documented by: Admin: 10/24/20 16:33 Dose: 100 mls/hr Documented by: SHLOMO Consultations Consultation #1: discussed with Dr. Mark ([facility] Hospitalist), happy to accept Vital Signs Vital signs: Vital Signs - 8 hr 10/24/20 20:30 10/24/20 20:40 10/24/20 21:00 Pulse Rate 95 H Respiratory Rate Blood Pressure 172/79 H 163/94 H Pulse Oximetry 98 95 10/24/20 21:10 10/24/20 21:14 10/24/20 21:30 Pulse Rate 96 H 99 H 98 H Respiratory Rate 15 Blood Pressure 163/94 H Pulse Oximetry 98 97 MDM - Male Genitourinary <Neema Mark DO - Last Filed: 11/04/20 06:54> Lab Data Attestation: I reviewed the patient's lab results. Result diagrams: 10/24/20 15:19 10/24/20 15:19 Labs: Lab Results 10/24/20 10/24/20 10/24/20 Range/Units 15:02 15:02 15:19 WBC 15.8 H (4.5-11.0) X10^3/uL RBC 4.88 (4.5-5.9) X10^6/uL Hgb 13.8 (13.5-17.5) g/dL Hct 43.3 (41-53) % MCV 88.7 (80-100) fL MCH 28.2 (26-34) PG MCHC 31.8 (30-36) % RDW 13.3 (11.6-14.8) % Plt Count 360 (150-400) X10^3/uL Neut % (Auto) 85.8 H (50-75) % Lymph % (Auto) 5.2 L (25-40) % [place] % (Auto) 8.4 (3-14) % Eos % (Auto) 0.2 L (2-4) % Baso % (Auto) 0.4 (0-2) % Neut # (Auto) 61852 H (8397-4316) /uL Lymph # (Auto) 800 L (1729-9479) /uL [place] # (Auto) 1300 H (0-900) /uL Eos # (Auto) 0 (0-450) /uL Baso # (Auto) 100 (0-100) /uL Sodium (137-145) mmol/L Potassium (3.4-5.1) mmol/L Chloride (98-107) mmol/L Carbon Dioxide (22-32) mmol/L BUN (9-20) mg/dL Creatinine (0.66-1.25) mg/dL Estimated GFR (>60) mL/min BUN/Creatinine Ratio (6-22) Glucose (80-110) mg/dL Hemoglobin A1c (4.0-6.0) % Lactate (0.7-2.1) mmol/L Calcium (8.4-10.2) mg/dL Total Bilirubin (0.2-1.3) mg/dL AST (17-59) IU/L ALT (<50) IU/L Alkaline Phosphatase (38-126) U/L Total Protein (6.3-8.2) g/dL Albumin (3.5-5.0) g/dL Globulin (1.7-4.1) g/dL Albumin/Globulin Ratio (1.0-2.8) Lipase (23-300) U/L Prostate Specific Ag (0.10-4.00) ng/mL Procalcitonin (<0.5) ng/mL Urine Color Yellow Urine Appearance Cloudy Urine pH 5.5 (4.5-8.0) Ur Specific [place] 1.020 (1.000-1.035) Urine Protein 2+ H (Negative) Urine Glucose (UA) 3+ H (Negative) g/dL Urine Ketones Trace H (NEGATIVE) Urine Occult Blood 3+ H (Negative) Urine Nitrate Negative (Negative) Urine Bilirubin Negative (NEGATIVE) Urine Urobilinogen 0.2 (0.2) E.U./dL Ur Leukocyte Esterase 2+ H (NEGATIVE) Urine RBC 1-5/hpf (0-5/HPF) Urine WBC >100/hpf H (0-5/HPF) Ur Squamous Epith Cells 0-1 /hpf (0-5/HPF) Amorphous Sediment 1+ Urine Bacteria Many (>30) H (None) Urine Mucus 1+ H (Negative) Ur Culture Indicated? Specimen cultured Ur Random Sodium 60 (30-90) mmol/L Urine Creatinine 64.9 mg/dL COVID-19 PCR (Negative) 10/24/20 10/24/20 10/24/20 Range/Units 15:19 15:19 15:19 WBC (4.5-11.0) X10^3/uL RBC (4.5-5.9) X10^6/uL Hgb (13.5-17.5) g/dL Hct (41-53) % MCV (80-100) fL MCH (26-34) PG MCHC (30-36) % RDW (11.6-14.8) % Plt Count (150-400) X10^3/uL Neut % (Auto) (50-75) % Lymph % (Auto) (25-40) % [place] % (Auto) (3-14) % Eos % (Auto) (2-4) % Baso % (Auto) (0-2) % Neut # (Auto) (4794-9032) /uL Lymph # (Auto) (0965-3310) /uL [place] # (Auto) (0-900) /uL Eos # (Auto) (0-450) /uL Baso # (Auto) (0-100) /uL Sodium 131 L (137-145) mmol/L Potassium 4.7 (3.4-5.1) mmol/L Chloride 96 L (98-107) mmol/L Carbon Dioxide 19 L (22-32) mmol/L BUN 68 H (9-20) mg/dL Creatinine 6.58 H (0.66-1.25) mg/dL Estimated GFR 8.4 L (>60) mL/min BUN/Creatinine Ratio 10.3 (6-22) Glucose 530 H* (80-110) mg/dL Hemoglobin A1c (4.0-6.0) % Lactate 1.4 (0.7-2.1) mmol/L Calcium 9.2 (8.4-10.2) mg/dL Total Bilirubin 0.6 (0.2-1.3) mg/dL AST 15 L (17-59) IU/L ALT 19 (<50) IU/L Alkaline Phosphatase 108 (38-126) U/L Total Protein 8.8 H (6.3-8.2) g/dL Albumin 4.3 (3.5-5.0) g/dL Globulin 4.5 H (1.7-4.1) g/dL Albumin/Globulin Ratio 1.0 (1.0-2.8) Lipase 529 H (23-300) U/L Prostate Specific Ag (0.10-4.00) ng/mL Procalcitonin 0.37 (<0.5) ng/mL Urine Color Urine Appearance Urine pH (4.5-8.0) Ur Specific [place] (1.000-1.035) Urine Protein (Negative) Urine Glucose (UA) (Negative) g/dL Urine Ketones (NEGATIVE) Urine Occult Blood (Negative) Urine Nitrate (Negative) Urine Bilirubin (NEGATIVE) Urine Urobilinogen (0.2) E.U./dL Ur Leukocyte Esterase (NEGATIVE) Urine RBC (0-5/HPF) Urine WBC (0-5/HPF) Ur Squamous Epith Cells (0-5/HPF) Amorphous Sediment Urine Bacteria (None) Urine Mucus (Negative) Ur Culture Indicated? Ur Random Sodium (30-90) mmol/L Urine Creatinine mg/dL COVID-19 PCR (Negative) 10/24/20 10/24/20 10/24/20 Range/Units 15:22 15:22 18:32 WBC (4.5-11.0) X10^3/uL RBC (4.5-5.9) X10^6/uL Hgb (13.5-17.5) g/dL Hct (41-53) % MCV (80-100) fL MCH (26-34) PG MCHC (30-36) % RDW (11.6-14.8) % Plt Count (150-400) X10^3/uL Neut % (Auto) (50-75) % Lymph % (Auto) (25-40) % [place] % (Auto) (3-14) % Eos % (Auto) (2-4) % Baso % (Auto) (0-2) % Neut # (Auto) (5805-3252) /uL Lymph # (Auto) (6760-0518) /uL [place] # (Auto) (0-900) /uL Eos # (Auto) (0-450) /uL Baso # (Auto) (0-100) /uL Sodium (137-145) mmol/L Potassium (3.4-5.1) mmol/L Chloride (98-107) mmol/L Carbon Dioxide (22-32) mmol/L BUN (9-20) mg/dL Creatinine (0.66-1.25) mg/dL Estimated GFR (>60) mL/min BUN/Creatinine Ratio (6-22) Glucose (80-110) mg/dL Hemoglobin A1c 9.2 H (4.0-6.0) % Lactate (0.7-2.1) mmol/L Calcium (8.4-10.2) mg/dL Total Bilirubin (0.2-1.3) mg/dL AST (17-59) IU/L ALT (<50) IU/L Alkaline Phosphatase (38-126) U/L Total Protein (6.3-8.2) g/dL Albumin (3.5-5.0) g/dL Globulin (1.7-4.1) g/dL Albumin/Globulin Ratio (1.0-2.8) Lipase (23-300) U/L Prostate Specific Ag 1.76 (0.10-4.00) ng/mL Procalcitonin (<0.5) ng/mL Urine Color Urine Appearance Urine pH (4.5-8.0) Ur Specific [place] (1.000-1.035) Urine Protein (Negative) Urine Glucose (UA) (Negative) g/dL Urine Ketones (NEGATIVE) Urine Occult Blood (Negative) Urine Nitrate (Negative) Urine Bilirubin (NEGATIVE) Urine Urobilinogen (0.2) E.U./dL Ur Leukocyte Esterase (NEGATIVE) Urine RBC (0-5/HPF) Urine WBC (0-5/HPF) Ur Squamous Epith Cells (0-5/HPF) Amorphous Sediment Urine Bacteria (None) Urine Mucus (Negative) Ur Culture Indicated? Ur Random Sodium (30-90) mmol/L Urine Creatinine mg/dL COVID-19 PCR Negative (Negative) Imaging Data CT scan - abdomen/pelvis: Radiologist's Impression: PROCEDURE: CT ABDOMEN PELVIS WO CON INDICATIONS: ab pain with renal failure TECHNIQUE: Noncontrast 5 mm thick sections acquired from the diaphragms to the symphysis. 5 mm coronal and sagittal reformats were then performed. For radiation dose reduction, the following was used: automated exposure control, adjustment of mA and/or kV according to patient size. COMPARISON: [facility], CT, CT KIDNEY URETER BLADDER (KUB), 02/08/2019, 17:20. FINDINGS: Image quality: Excellent. ABDOMEN: Lung bases: Lung bases are clear. Heart size is normal. Solid organs: Liver is normal in size. Gallbladder is unremarkable. Pancreas is normal in contours. Spleen is normal in size. No adrenal nodules Right kidney: Severe hydronephrosis, as before, with development of mild to moderate cortical thinning. Chronic hyperdense cyst off the middle pole. 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 Right ureter: Dilated to the base of the bladder. Left kidney: Marked hydronephrosis an severe cortical thinning, as before. Left ureter: Diffusely dilated to the base of the bladder. Bladder: Distended bladder with marked bladder wall thickening. Consider neurogenic bladder versus bladder outlet obstruction. Appearance is not significantly changed. Peritoneum and bowel: Unenhanced bowel loops demonstrate normal wall thickness and caliber. No free fluid or air. Sigmoid diverticulosis without evidence of diverticulitis. Nodes and vessels: No retroperitoneal or mesenteric adenopathy by size criteria. Aorta and inferior vena cava are normal in caliber. Miscellaneous: No ventral hernias. PELVIS: Genitourinary: Distended bladder with diffuse bladder wall thickening. Consider neurogenic bladder versus bladder outlet obstruction. Miscellaneous: Small bilateral inguinal hernias containing fat. No inguinal adenopathy. Bones: No suspicious bony lesions. No vertebral body compression fractures. IMPRESSION: 1. Neurogenic bladder versus chronic bladder outlet obstruction. 2. Severe right hydronephrosis and hydroureter as before. Interval increase in right renal cortical loss. 3. Marked left hydronephrosis and significant left cortical thinning, with dilatation of the left ureter to the base of the bladder. Dictated by: Farzad Meneses M.D. on 10/24/2020 at 16:20 Approved by: Farzad Meneses M.D. on 10/24/2020 at 16:28 [facility] Narrative Medical decision making narrative: 1705 Dr. Potter nephrology at this time no need for emergent dialysis does agree of transfer and admit to hospitalist Patient has a PCP in [place] but has not yet seen them states that getting to [place] is going to be difficult. cafeteria worker was involved to get a local PCP [place]. He actually has appointment on 11/06/2020 at 10:00 a.m. Patient signed out to Dr. Giron awaiting for hospitalist admit <Qamar Giron DO - Last Filed: 11/03/20 08:54> Lab Data Labs: Lab Results 10/24/20 10/24/20 10/24/20 Range/Units 15:02 15:02 15:19 WBC 15.8 H (4.5-11.0) X10^3/uL RBC 4.88 (4.5-5.9) X10^6/uL Hgb 13.8 (13.5-17.5) g/dL Hct 43.3 (41-53) % MCV 88.7 (80-100) fL MCH 28.2 (26-34) PG MCHC 31.8 (30-36) % RDW 13.3 (11.6-14.8) % Plt Count 360 (150-400) X10^3/uL Neut % (Auto) 85.8 H (50-75) % Lymph % (Auto) 5.2 L (25-40) % [place] % (Auto) 8.4 (3-14) % Eos % (Auto) 0.2 L (2-4) % Baso % (Auto) 0.4 (0-2) % Neut # (Auto) 58135 H (1369-2799) /uL Lymph # (Auto) 800 L (1977-5136) /uL [place] # (Auto) 1300 H (0-900) /uL Eos # (Auto) 0 (0-450) /uL Baso # (Auto) 100 (0-100) /uL Sodium (137-145) mmol/L Potassium (3.4-5.1) mmol/L Chloride (98-107) mmol/L Carbon Dioxide (22-32) mmol/L BUN (9-20) mg/dL Creatinine (0.66-1.25) mg/dL Estimated GFR (>60) mL/min BUN/Creatinine Ratio (6-22) Glucose (80-110) mg/dL Hemoglobin A1c (4.0-6.0) % Lactate (0.7-2.1) mmol/L Calcium (8.4-10.2) mg/dL Total Bilirubin (0.2-1.3) mg/dL AST (17-59) IU/L ALT (<50) IU/L Alkaline Phosphatase (38-126) U/L Total Protein (6.3-8.2) g/dL Albumin (3.5-5.0) g/dL Globulin (1.7-4.1) g/dL Albumin/Globulin Ratio (1.0-2.8) Lipase (23-300) U/L Prostate Specific Ag (0.10-4.00) ng/mL Procalcitonin (<0.5) ng/mL Urine Color Yellow Urine Appearance Cloudy Urine pH 5.5 (4.5-8.0) Ur Specific [place] 1.020 (1.000-1.035) Urine Protein 2+ H (Negative) Urine Glucose (UA) 3+ H (Negative) g/dL Urine Ketones Trace H (NEGATIVE) Urine Occult Blood 3+ H (Negative) Urine Nitrate Negative (Negative) Urine Bilirubin Negative (NEGATIVE) Urine Urobilinogen 0.2 (0.2) E.U./dL Ur Leukocyte Esterase 2+ H (NEGATIVE) Urine RBC 1-5/hpf (0-5/HPF) Urine WBC >100/hpf H (0-5/HPF) Ur Squamous Epith Cells 0-1 /hpf (0-5/HPF) Amorphous Sediment 1+ Urine Bacteria Many (>30) H (None) Urine Mucus 1+ H (Negative) Ur Culture Indicated? Specimen cultured Ur Random Sodium 60 (30-90) mmol/L Urine Creatinine 64.9 mg/dL COVID-19 PCR (Negative) 10/24/20 10/24/20 10/24/20 Range/Units 15:19 15:19 15:19 WBC (4.5-11.0) X10^3/uL RBC (4.5-5.9) X10^6/uL Hgb (13.5-17.5) g/dL Hct (41-53) % MCV (80-100) fL MCH (26-34) PG MCHC (30-36) % RDW (11.6-14.8) % Plt Count (150-400) X10^3/uL Neut % (Auto) (50-75) % Lymph % (Auto) (25-40) % [place] % (Auto) (3-14) % Eos % (Auto) (2-4) % Baso % (Auto) (0-2) % Neut # (Auto) (5143-2013) /uL Lymph # (Auto) (8113-3093) /uL [place] # (Auto) (0-900) /uL Eos # (Auto) (0-450) /uL Baso # (Auto) (0-100) /uL Sodium 131 L (137-145) mmol/L Potassium 4.7 (3.4-5.1) mmol/L Chloride 96 L (98-107) mmol/L Carbon Dioxide 19 L (22-32) mmol/L BUN 68 H (9-20) mg/dL Creatinine 6.58 H (0.66-1.25) mg/dL Estimated GFR 8.4 L (>60) mL/min BUN/Creatinine Ratio 10.3 (6-22) Glucose 530 H* (80-110) mg/dL Hemoglobin A1c (4.0-6.0) % Lactate 1.4 (0.7-2.1) mmol/L Calcium 9.2 (8.4-10.2) mg/dL Total Bilirubin 0.6 (0.2-1.3) mg/dL AST 15 L (17-59) IU/L ALT 19 (<50) IU/L Alkaline Phosphatase 108 (38-126) U/L Total Protein 8.8 H (6.3-8.2) g/dL Albumin 4.3 (3.5-5.0) g/dL Globulin 4.5 H (1.7-4.1) g/dL Albumin/Globulin Ratio 1.0 (1.0-2.8) Lipase 529 H (23-300) U/L Prostate Specific Ag (0.10-4.00) ng/mL Procalcitonin 0.37 (<0.5) ng/mL Urine Color Urine Appearance Urine pH (4.5-8.0) Ur Specific [place] (1.000-1.035) Urine Protein (Negative) Urine Glucose (UA) (Negative) g/dL Urine Ketones (NEGATIVE) Urine Occult Blood (Negative) Urine Nitrate (Negative) Urine Bilirubin (NEGATIVE) Urine Urobilinogen (0.2) E.U./dL Ur Leukocyte Esterase (NEGATIVE) Urine RBC (0-5/HPF) Urine WBC (0-5/HPF) Ur Squamous Epith Cells (0-5/HPF) Amorphous Sediment Urine Bacteria (None) Urine Mucus (Negative) Ur Culture Indicated? Ur Random Sodium (30-90) mmol/L Urine Creatinine mg/dL COVID-19 PCR (Negative) 10/24/20 10/24/20 10/24/20 Range/Units 15:22 15:22 18:32 WBC (4.5-11.0) X10^3/uL RBC (4.5-5.9) X10^6/uL Hgb (13.5-17.5) g/dL Hct (41-53) % MCV (80-100) fL MCH (26-34) PG MCHC (30-36) % RDW (11.6-14.8) % Plt Count (150-400) X10^3/uL Neut % (Auto) (50-75) % Lymph % (Auto) (25-40) % [place] % (Auto) (3-14) % Eos % (Auto) (2-4) % Baso % (Auto) (0-2) % Neut # (Auto) (1332-4316) /uL Lymph # (Auto) (0097-1206) /uL [place] # (Auto) (0-900) /uL Eos # (Auto) (0-450) /uL Baso # (Auto) (0-100) /uL Sodium (137-145) mmol/L Potassium (3.4-5.1) mmol/L Chloride (98-107) mmol/L Carbon Dioxide (22-32) mmol/L BUN (9-20) mg/dL Creatinine (0.66-1.25) mg/dL Estimated GFR (>60) mL/min BUN/Creatinine Ratio (6-22) Glucose (80-110) mg/dL Hemoglobin A1c 9.2 H (4.0-6.0) % Lactate (0.7-2.1) mmol/L Calcium (8.4-10.2) mg/dL Total Bilirubin (0.2-1.3) mg/dL AST (17-59) IU/L ALT (<50) IU/L Alkaline Phosphatase (38-126) U/L Total Protein (6.3-8.2) g/dL Albumin (3.5-5.0) g/dL Globulin (1.7-4.1) g/dL Albumin/Globulin Ratio (1.0-2.8) Lipase (23-300) U/L Prostate Specific Ag 1.76 (0.10-4.00) ng/mL Procalcitonin (<0.5) ng/mL Urine Color Urine Appearance Urine pH (4.5-8.0) Ur Specific [place] (1.000-1.035) Urine Protein (Negative) Urine Glucose (UA) (Negative) g/dL Urine Ketones (NEGATIVE) Urine Occult Blood (Negative) Urine Nitrate (Negative) Urine Bilirubin (NEGATIVE) Urine Urobilinogen (0.2) E.U./dL Ur Leukocyte Esterase (NEGATIVE) Urine RBC (0-5/HPF) Urine WBC (0-5/HPF) Ur Squamous Epith Cells (0-5/HPF) Amorphous Sediment Urine Bacteria (None) Urine Mucus (Negative) Ur Culture Indicated? Ur Random Sodium (30-90) mmol/L Urine Creatinine mg/dL COVID-19 PCR Negative (Negative) Discharge Plan Departure Patient Disposition: [facility] Clinical Impression: Acute UTI Acute renal failure Qualifiers: Acute renal failure type: unspecified Qualified Code(s): N17.9 - Acute kidney failure, unspecified Prescriptions: No Action No Known Home Medications RF: 0
[2020-10-24 15:07] LABS: Appearance Urine UA CLOUDY; Bilirubin Urine UA NEGATIVE (NEGATIVE); Color Urine UA YELLOW; Glucose Urine UA 3+ g/dL (Negative); Ketones Urine UA TRACE (NEGATIVE); Leukocyte Esterase Urine UA 2+ (NEGATIVE); Nitrite Urine UA NEGATIVE (Negative); Occult Blood Urine UA 3+ (Negative); Protein Urine UA 2+ (Negative); Urobilinogen Urine UA 0.2 E.U./dL (0.2); pH Urine UA 5.5 (4.5-8.0)
[2020-10-24 15:14] LABS: Amorphous Sediment Urine 1+; Bacteria Urine Many (>30); Culture Indicated Urine Specimen Cultured; Mucus Urine 1+ (Negative); RBC Urine 1-5/HPF (0-5/HPF); Squamous Epithelial Cell Urine 0-1 /HPF (0-5/HPF); WBC Urine >100/HPF (0-5/HPF)
[2020-10-24 15:31] LABS: Add Manual Diff / Slide Review NO; Basophils Absolute Auto 100 /uL (0-100); Basophils Percent Auto 0.4 % (0-2); Eosinophils Absolute Auto 0 /uL (0-450); Eosinophils Percent Auto 0.2 % (2-4); Hematocrit 43.3 % (41-53); Hemoglobin 13.8 g/dL (13.5-17.5); Lymphocytes Absolute Auto 800 /uL (1100-4500); Lymphocytes Percent Auto 5.2 % (25-40); Mean Corpuscular HGB Conc 31.8 % (30-36); Mean Corpuscular Hemoglobin 28.2 PG (26-34); Mean Corpuscular Volume 88.7 fL (80-100); Monocytes Absolute Auto 1300 /uL (0-900); Monocytes Percent Auto 8.4 % (3-14); Neutrophils Absolute Auto 13500 /uL (1500-7000); Neutrophils Percent Auto 85.8 % (50-75); Platelet Count 360 X10^3/uL (150-400); Red Blood Cell Count 4.88 X10^6/uL (4.5-5.9); Red Cell Distribution Width 13.3 % (11.6-14.8); White Blood Cell Count 15.8 X10^3/uL (4.5-11.0)
[2020-10-24] MEDS: SODIUM CHLORIDE 0.9% 1,000 ML 1000 ML IV (15:37)
[2020-10-24 15:47] LABS: Lactate (Lactic Acid) 1.4 mmol/L (0.7-2.1)
[2020-10-24 15:48] LABS: Alanine Aminotransferase 19 IU/L (<50); Albumin 4.3 g/dL (3.5-5.0); Alkaline Phosphatase 108 U/L (38-126); Aspartate Aminotransferase 15 IU/L (17-59); BUN Creatinine Ratio 10.3 (6-22); Bilirubin Total 0.6 mg/dL (0.2-1.3); Blood Urea Nitrogen 68 mg/dL (9-20); Calcium 9.2 mg/dL (8.4-10.2); Carbon Dioxide 19 mmol/L (22-32); Chloride 96 mmol/L (98-107); Estimated Glomerular Filt Rate 8.4 mL/min (>60); Globulin 4.5 g/dL (1.7-4.1); HEMOLYSIS < 15 (0-50); Lipase 529 U/L (23-300); Potassium 4.7 mmol/L (3.4-5.1); Sodium 131 mmol/L (137-145); Total Protein 8.8 g/dL (6.3-8.2)
[2020-10-24 15:59] LABS: Glucose 530 mg/dL (80-110)
--- NOTE | 2020-10-24 16:01 | DI.CT.S_ITS ---
PROCEDURE: CT ABDOMEN PELVIS WO CON INDICATIONS: ab pain with renal failure TECHNIQUE: Noncontrast 5 mm thick sections acquired from the diaphragms to the symphysis. 5 mm coronal and sagittal reformats were then performed. For radiation dose reduction, the following was used: automated exposure control, adjustment of mA and/or kV according to patient size. COMPARISON: [facility], CT, CT KIDNEY URETER BLADDER (KUB), 02/08/2019, 17:20. FINDINGS: Image quality: Excellent. ABDOMEN: Lung bases: Lung bases are clear. Heart size is normal. Solid organs: Liver is normal in size. Gallbladder is unremarkable. Pancreas is normal in contours. Spleen is normal in size. No adrenal nodules Right kidney: Severe hydronephrosis, as before, with development of mild to moderate cortical thinning. Chronic hyperdense cyst off the middle pole. 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 Right ureter: Dilated to the base of the bladder. Left kidney: Marked hydronephrosis an severe cortical thinning, as before. Left ureter: Diffusely dilated to the base of the bladder. Bladder: Distended bladder with marked bladder wall thickening. Consider neurogenic bladder versus bladder outlet obstruction. Appearance is not significantly changed. Peritoneum and bowel: Unenhanced bowel loops demonstrate normal wall thickness and caliber. No free fluid or air. Sigmoid diverticulosis without evidence of diverticulitis. Nodes and vessels: No retroperitoneal or mesenteric adenopathy by size criteria. Aorta and inferior vena cava are normal in caliber. Miscellaneous: No ventral hernias. PELVIS: Genitourinary: Distended bladder with diffuse bladder wall thickening. Consider neurogenic bladder versus bladder outlet obstruction. Miscellaneous: Small bilateral inguinal hernias containing fat. No inguinal adenopathy. Bones: No suspicious bony lesions. No vertebral body compression fractures. IMPRESSION: 1. Neurogenic bladder versus chronic bladder outlet obstruction. 2. Severe right hydronephrosis and hydroureter as before. Interval increase in right renal cortical loss. 3. Marked left hydronephrosis and significant left cortical thinning, with dilatation of the left ureter to the base of the bladder. Dictated by: Farzad Meneses M.D. on 10/24/2020 at 16:20 Approved by: Farzad Meneses M.D. on 10/24/2020 at 16:28
[2020-10-24 16:04] LABS: Procalcitonin 0.37 ng/mL (<0.5)
--- NOTE | 2020-10-24 16:29 | CM.SWNOTE ---
GLOVE WRAPPER note GLOVE WRAPPER consult requested for patient. Patient is a 70 y/o male who presents to this ED with stated complaint of prostate problems. Patient has [employer] Medicare [employer]vantage and Medicaid insurances. Per verbal report from Dr. Mark, patient was assigned a PCP in [place] when he enrolled in Medicare and is unable to readily access care in [place]. GLOVE WRAPPER enters patient room, introduces self and role, and discusses PCP with patient. Patient states he has had difficultly finding a PCP in [place] who accepts his insurance, and requests assistance in securing local PCP. GLOVE WRAPPER exits room and calls [facility] ([facility]; [phone]) and is informed that these clinics do not accept patient's insurance. GLOVE WRAPPER calls [facility] and arranges new patient appointment with Renata Zimmer for 11/06/20 at 10am. GLOVE WRAPPER prints off new patient paperwork and places it in paper chart to be given to patient with d/c packet. GLOVE WRAPPER informs patient, who informs GLOVE WRAPPER that he can make this appointment and martinez the time and date for appointment in the calendar in his phone. Patient denies other needs from GLOVE WRAPPER at this time. GLOVE WRAPPER updates Dr. Mark. Plan: Patient to continue course of care while in ED and f/u with PCP later in month. GERSON Toussaint
[2020-10-24] MEDS: CEFTRIAXONE 1 GM/50 ML FROZ.PIGGY IV (16:33)
[2020-10-24 18:58] LABS: COVID19 -Nasal RAPID Negative (Negative)
--- NOTE | 2020-10-24 19:34 | PC.NURSE ---
4 attempts by 2 different nurses with cude and with non latex serrano catheter size 16fr. Unable to get it past his prostate. Very painful Patient able to urinate again 200 cc
[2020-10-24 19:44] LABS: Creatinine Urine Random 64.9 mg/dL; Sodium Urine Random 60 mmol/L (30-90)
[2020-10-24 20:11] LABS: Hemoglobin A1C% w Est Avg Glu 9.2 % (4.0-6.0)
[2020-10-24 20:40] LABS: Prostate Specific Antigen 1.76 ng/mL (0.10-4.00)
== END 2020-10-24 22:06 | disposition short-term general hospital (02) ==
PROVIDERS: Emergency Medicine; Emergency Provider Emergency Medicine
DX: N39.0 Urinary tract infection, site not specified (principal); N17.9 Acute kidney failure, unspecified; R10.9 Unspecified abdominal pain; N40.0 Benign prostatic hyperplasia without lower urinary tract symptoms; Z86.73 Personal history of transient ischemic attack (TIA), and cerebral infarction without residual deficits; Z20.828 Contact with and (suspected) exposure to other viral communicable diseases
CPT/HCPCS: 36415; 51798; 74176; 80053; 81001; 82570; 83036; 83605; 83690; 84145; 84153; 84300; 85025; 87040; 87077; 87086; 87635; 96361; 96365; 99283; 99284

== ENCOUNTER 2020-11-03 07:46 | Inpatient (IN) | payer OTHER, MEDICAID, SELFPAY ==
[2020-11-03] VITALS (13 sets, daily range): BP systolic 107–165; BP diastolic 56–82; PULSE 77–103; RESP 14–21; TEMP 36–36.9; O2SAT 89–99; BMI 25.9
--- NOTE | 2020-11-03 08:04 | ED.AMS ---
HPI - Altered Mental Status General Chief Complaint: Neuro Symptoms/Deficit Stated Complaint: thinks having a stroke Time Seen by Provider: 11/03/20 07:51 Source: patient Mode of arrival: Ambulatory Limitations: altered mental status History of Present Illness HPI narrative: 70-year-old male nonsmoker with history of BPH, prior TIA, recent hospitalization for acute renal failure presents with a chief complaint concern that he has been having a stroke for the past 2 or 3 days. He was seen here on October 24 and transferred to [facility], discharged on October 30. He states that ever since his discharge he has been having visual disturbance in the right side of his visual field, and difficulty with speech. He states the right side of his body feels ?weird? but denies any specific numbness, tingling or weakness. He denies any recent traumas or falls. He has no headache, chest pain or shortness of breath. MD complaint: altered mental status and confusion Onset (ago): day(s) Severity: moderate Consistency of symptoms: constant Associated symptoms: denies other symptoms Related Data Home Medications Medication Instructions Recorded Confirmed No Known Home Medications 10/24/20 10/24/20 Allergies Allergy/AdvReac Type Severity Reaction Status Date / Time No Known Drug Allergies Allergy Verified 10/24/20 14:32 Review of Systems Constitutional Constitutional: Denies chills, Denies fatigue, Denies fever(s), Denies frequent falls, Denies lethargy and Reports weakness Eyes Eyes: Reports change in vision, Denies eye discharge, Denies irritation and Denies loss of vision ENT Ears, Nose, Mouth, and Throat: Denies change in voice, Denies dizziness, Denies neck pain, Denies sore throat and Denies throat swelling Cardiovascular Cardiovascular: Denies chest pain, Denies irregular heart rhythm, Denies lightheadedness, Denies palpitations, Denies dyspnea, Denies dyspnea on exertion and Denies orthopnea Respiratory Respiratory: Denies cough, Denies dyspnea, Denies dyspnea on exertion and Denies wheezing Gastrointestinal Gastrointestinal: Denies abdominal pain, Denies change in bowel habits, Denies diarrhea, Denies nausea and Denies vomiting Musculoskeletal Musculoskeletal: Denies neck pain and Denies numbness Integumentary/Breasts Skin/Breast: Denies pruritus, Denies erythema, Denies rash and Denies wounds Neurologic Neurologic: Denies behavioral changes, Reports confusion, Denies dizziness, Denies frequent falls, Denies loss of vision, Denies numbness and Reports weakness Psychiatric Psychiatric: Denies anxiety, Denies behavioral changes, Reports confusion, Denies depression, Denies homicidal ideation and Denies suicidal ideation Endocrine Endocrine: Denies fatigue, Denies flushing and Denies palpitations Hematologic/Lymphatic Hematologic/Lymphatic: Denies easy bruising Allergic/Immunologic Allergic/Immunologic: Denies urticaria, Denies throat swelling and Denies wheezing Patient History Medical History Borderline diabetes mellitus BPH (benign prostatic hyperplasia) TIA (transient ischemic attack) Surgical History No pertinent past surgical history Social History Smoking Status: Never smoker Smoking Status: Never smoker alcohol intake frequency: 0-2 drinks per day Substance Use Type: does not use Exam Narrative Exam Narrative: GENERAL: 70 year old patient appears stated age. Well-nourished, well-developed patient, in mild distress. Difficulty with conversing, trouble finding words HEAD: Atraumatic. Normocephalic. EYES: Pupils equal round and reactive. Extraocular motions intact. No scleral icterus. No injection or drainage. ENT: Nose without bleeding, purulent drainage. Throat without erythema, tonsillar hypertrophy or exudate. Airway patent. NECK: Trachea midline. Non tender CARDIOVASCULAR: Regular rate and rhythm without murmurs, gallops, or rubs. RESPIRATORY: Clear to auscultation. Breath sounds equal bilaterally. No wheezes, rales, or rhonchi. GASTROINTESTINAL: Abdomen soft, non-tender, nondistended. EXTREMITIES: No edema or joint tenderness. BACK: Nontender without deformity or crepitance. No flank tenderness. NEURO: Awake, alert. Confused about date and location. SKIN: No rash or erythema of visible areas Initial Vital Signs Initial Vital Signs: Vital Signs Temperature 98.5 F 11/03/20 07:50 Pulse Rate 103 H 11/03/20 07:50 Respiratory Rate 16 11/03/20 07:50 Blood Pressure 165/74 H 11/03/20 07:50 Pulse Oximetry 99 11/03/20 07:50 Scores NIH Stroke Scale Level of Conciousness: Alert, keenly responsive Ask month/age: Answers neither question correctly, aphasic, stuporous, coma Open/close eyes, close hand: Performs both tasks correctly Best gaze horizontal: Partial gaze palsy, can be overcome by finger tracking, head turning Visual allen: Partial hemianopia Facial palsy: Normal symetrical movement Left arm drift: No drift for full 10 sec Right arm drift: No drift for full 10 sec Left leg drift: No drift for full 5 sec Right leg drift: No drift for full 5 sec Limb ataxia: Absent Sensory on face/arms/legs: Normal, no sensory loss Best language: Mild to moderate, slurs some words Dysarthria: Normal Extinction or inattention: No abnormality Total NIH Stroke scale score: 5 Course Course Course Narrative: records reviewed from [facility] admission. Urology recommended only serrano and follow up with [facility] given his living situation. Nephrology recommendations included daily weights, avoidance of NSAIDs and IV contrast, renally dosing medications and management of obstructive uropathy per Urology. Orders Ordered: ED Orders 11/03/20 08:03 Complete Blood Count AUTO DIFF Stat Comprehensive Metabolic Panel Stat Magnesium Stat NT-proBNP (BNP-Adult 18+) Stat Troponin & CK Cardiac Panel Stat 11/03/20 08:11 EKG-12 Lead Stat 11/03/20 08:14 CT head/brain wo con Stat 11/03/20 08:15 Urine Culture Stat Urine Microscopic Stat 11/03/20 08:20 COVID19 Stat Consultations Consultation #1: Hospitalist (Tung) happy to accept Vital Signs Vital signs: Vital Signs - 8 hr 11/03/20 07:50 11/03/20 08:00 11/03/20 08:17 Temperature 98.5 F Pulse Rate 103 H 99 H 92 H Respiratory Rate 16 21 19 Blood Pressure 165/74 H 165/65 H 163/71 H Pulse Oximetry 99 99 89 L 11/03/20 08:30 Temperature Pulse Rate 92 H Respiratory Rate 21 Blood Pressure 151/60 H Pulse Oximetry 99 MDM - Altered Mental Status Lab Data Result diagrams: 11/03/20 08:03 11/03/20 08:03 Labs: Lab Results 11/03/20 11/03/20 11/03/20 Range/Units 08:03 08:03 08:15 WBC 15.3 H (4.5-11.0) X10^3/uL RBC 4.37 L (4.5-5.9) X10^6/uL Hgb 12.3 L (13.5-17.5) g/dL Hct 38.5 L (41-53) % MCV 88.1 (80-100) fL MCH 28.2 (26-34) PG MCHC 32.0 (30-36) % RDW 13.4 (11.6-14.8) % Plt Count 365 (150-400) X10^3/uL Neut % (Auto) 86.3 H (50-75) % Lymph % (Auto) 7.7 L (25-40) % Fillmore % (Auto) 4.8 (3-14) % Eos % (Auto) 0.5 L (2-4) % Baso % (Auto) 0.7 (0-2) % Neut # (Auto) 71842 H (1110-6749) /uL Lymph # (Auto) 1200 (6310-6507) /uL Fillmore # (Auto) 700 (0-900) /uL Eos # (Auto) 100 (0-450) /uL Baso # (Auto) 100 (0-100) /uL Sodium 129 L (137-145) mmol/L Potassium 5.1 (3.4-5.1) mmol/L Chloride 100 (98-107) mmol/L Carbon Dioxide 22 (22-32) mmol/L BUN 42 H (9-20) mg/dL Creatinine 3.61 H (0.66-1.25) mg/dL Estimated GFR 16.8 L (>60) mL/min BUN/Creatinine Ratio 11.6 (6-22) Glucose 421 H D (80-110) mg/dL Calcium 8.6 (8.4-10.2) mg/dL Magnesium 2.0 (1.6-2.3) mg/dL Total Bilirubin 0.2 (0.2-1.3) mg/dL AST 13 L (17-59) IU/L ALT 18 (<50) IU/L Alkaline Phosphatase 93 (38-126) U/L Total Creatine Kinase 32 L (55-170) U/L CK-MB (CK-2) TNP CK-MB (CK-2) Rel Index TNP Troponin I < 0.012 (0.01-0.034) ng/mL NT-Pro-B Natriuret Pep 111 (<125) pg/mL Total Protein 8.0 (6.3-8.2) g/dL Albumin 4.0 (3.5-5.0) g/dL Globulin 4.0 (1.7-4.1) g/dL Albumin/Globulin Ratio 1.0 (1.0-2.8) Urine RBC 1-5/hpf (0-5/HPF) Urine WBC 10-30/hpf H (0-5/HPF) Ur Squamous Epith Cells 0-1 /hpf (0-5/HPF) Urine Bacteria Moderate (10-30) H (None) Urine Yeast 0-1/hpf (None) Ur Culture Indicated? Specimen cultured COVID-19 PCR (Negative) 11/03/20 Range/Units 08:20 WBC (4.5-11.0) X10^3/uL RBC (4.5-5.9) X10^6/uL Hgb (13.5-17.5) g/dL Hct (41-53) % MCV (80-100) fL MCH (26-34) PG MCHC (30-36) % RDW (11.6-14.8) % Plt Count (150-400) X10^3/uL Neut % (Auto) (50-75) % Lymph % (Auto) (25-40) % Fillmore % (Auto) (3-14) % Eos % (Auto) (2-4) % Baso % (Auto) (0-2) % Neut # (Auto) (1645-8612) /uL Lymph # (Auto) (4368-3580) /uL Fillmore # (Auto) (0-900) /uL Eos # (Auto) (0-450) /uL Baso # (Auto) (0-100) /uL Sodium (137-145) mmol/L Potassium (3.4-5.1) mmol/L Chloride (98-107) mmol/L Carbon Dioxide (22-32) mmol/L BUN (9-20) mg/dL Creatinine (0.66-1.25) mg/dL Estimated GFR (>60) mL/min BUN/Creatinine Ratio (6-22) Glucose (80-110) mg/dL Calcium (8.4-10.2) mg/dL Magnesium (1.6-2.3) mg/dL Total Bilirubin (0.2-1.3) mg/dL AST (17-59) IU/L ALT (<50) IU/L Alkaline Phosphatase (38-126) U/L Total Creatine Kinase (55-170) U/L CK-MB (CK-2) CK-MB (CK-2) Rel Index Troponin I (0.01-0.034) ng/mL NT-Pro-B Natriuret Pep (<125) pg/mL Total Protein (6.3-8.2) g/dL Albumin (3.5-5.0) g/dL Globulin (1.7-4.1) g/dL Albumin/Globulin Ratio (1.0-2.8) Urine RBC (0-5/HPF) Urine WBC (0-5/HPF) Ur Squamous Epith Cells (0-5/HPF) Urine Bacteria (None) Urine Yeast (None) Ur Culture Indicated? COVID-19 PCR Negative (Negative) Point of Care Testing Glucose POC 311 Urine Dip Bedside Urine Glucose 1000 mg/dl Bedside Urine Bilirubin - Negative Bedside Urine Ketone - Negative Urine Specific Grover 1.015 Bedside Urine Occult Blood ++ Bedside Urine pH 6 Bedside Urine Urobilinogen - Negative Bedside Urine Nitrite - Negative Bedside Urine Leukocytes +/- [address] scan - head: Radiologist's Impression: Jacques Barnett 70 M [address] [id number] Scan ReportSigned Patient: Jacques Barnett AMR#: [id number]: 1950Acct:[id number]/Sex: 70 / MDate of Service: 11/03/20Loc: EDAccession Number: [id number] Procedure: CT head/brain wo con Ordering Provider: Qamar Giron D.O. PROCEDURE: CT HEAD/BRAIN WO CON INDICATIONS: weakness, stroke symptoms TECHNIQUE: Noncontrast 4.5 mm thick angled axial sections acquired from the foramen magnum to the vertex, with coronal and sagittal reformats. For radiation dose reduction, the following was used: automated exposure control, adjustment of mA and/or kV according to patient size. COMPARISON: None. FINDINGS: Image quality: Excellent. CSF spaces: Basal cisterns are patent. No extra-axial fluid collections. Ventricles are normal in size and shape. Brain: No midline shift. No intracranial masses or hemorrhage. Denson-white matter interface is normal. Skull and face: Calvarium and visualized facial bones are intact, without suspicious lesions. Sinuses: Visualized sinuses and mastoids are clear. IMPRESSION: Negative head CT. No evidence acute stroke, hemorrhage, or mass. Dictated by: Farzad Meneses M.D. on 11/03/2020 at 8:22 Approved by: Farzad Meneses M.D. on 11/03/2020 at 8:23 ECG Data Interpretation: EKG is normal sinus rhythm rate [97] and free of any signs of ischemia or ectopy. No ST segmental elevation or depression. No T wave inversions. VT 234 Discharge Plan Departure Patient Disposition: Admitted As Inpatient Clinical Impression: Cerebrovascular accident Qualifiers: CVA mechanism: unspecified Qualified Code(s): I63.9 - Cerebral infarction, unspecified Admit Date/Time: 11/03/20 09:06 Admit Provider: Albert Ruby
--- NOTE | 2020-11-03 08:11 | PC.NURSE ---
pt states he doesn't feel safe in home, i asked if it was his health condition and he said yes.
--- NOTE | 2020-11-03 08:14 | DI.CT.S_ITS ---
PROCEDURE: CT HEAD/BRAIN WO CON INDICATIONS: weakness, stroke symptoms TECHNIQUE: Noncontrast 4.5 mm thick angled axial sections acquired from the foramen magnum to the vertex, with coronal and sagittal reformats. For radiation dose reduction, the following was used: automated exposure control, adjustment of mA and/or kV according to patient size. COMPARISON: None. FINDINGS: Image quality: Excellent. CSF spaces: Basal cisterns are patent. No extra-axial fluid collections. Ventricles are normal in size and shape. Brain: No midline shift. No intracranial masses or hemorrhage. Denson-white matter interface is normal. Skull and face: Calvarium and visualized facial bones are intact, without suspicious lesions. Sinuses: Visualized sinuses and mastoids are clear. IMPRESSION: Negative head CT. No evidence acute stroke, hemorrhage, or mass. Dictated by: Farzad Meneses M.D. on 11/03/2020 at 8:22 Approved by: Farzad Meneses M.D. on 11/03/2020 at 8:23
[2020-11-03 08:19] LABS: Add Manual Diff / Slide Review NO; Basophils Absolute Auto 100 /uL (0-100); Basophils Percent Auto 0.7 % (0-2); Eosinophils Absolute Auto 100 /uL (0-450); Eosinophils Percent Auto 0.5 % (2-4); Hematocrit 38.5 % (41-53); Hemoglobin 12.3 g/dL (13.5-17.5); Lymphocytes Absolute Auto 1200 /uL (1100-4500); Lymphocytes Percent Auto 7.7 % (25-40); Mean Corpuscular Hemoglobin 28.2 PG (26-34); Mean Corpuscular Volume 88.1 fL (80-100); Monocytes Absolute Auto 700 /uL (0-900); Monocytes Percent Auto 4.8 % (3-14); Neutrophils Absolute Auto 13200 /uL (1500-7000); Neutrophils Percent Auto 86.3 % (50-75); Platelet Count 365 X10^3/uL (150-400); Red Blood Cell Count 4.37 X10^6/uL (4.5-5.9); Red Cell Distribution Width 13.4 % (11.6-14.8); White Blood Cell Count 15.3 X10^3/uL (4.5-11.0)
[2020-11-03 08:25] LABS: Alanine Aminotransferase 18 IU/L (<50); Alkaline Phosphatase 93 U/L (38-126); Aspartate Aminotransferase 13 IU/L (17-59); BUN Creatinine Ratio 11.6 (6-22); Bilirubin Total 0.2 mg/dL (0.2-1.3); Blood Urea Nitrogen 42 mg/dL (9-20); Calcium 8.6 mg/dL (8.4-10.2); Carbon Dioxide 22 mmol/L (22-32); Chloride 100 mmol/L (98-107); Creatine Kinase 32 U/L (55-170); Estimated Glomerular Filt Rate 16.8 mL/min (>60); Glucose 421 mg/dL (80-110); HEMOLYSIS < 15 (0-50); Potassium 5.1 mmol/L (3.4-5.1); Sodium 129 mmol/L (137-145)
[2020-11-03 08:33] LABS: NT-proBNP (BNP-Adult 18+) 111 pg/mL (<125)
[2020-11-03 08:37] LABS: Troponin I < 0.012 ng/mL (0.01-0.034)
[2020-11-03 08:44] LABS: COVID19 -Nasal RAPID Negative (Negative)
[2020-11-03 08:53] LABS: Bacteria Urine Moderate (10-30); RBC Urine 1-5/HPF (0-5/HPF); Squamous Epithelial Cell Urine 0-1 /HPF (0-5/HPF); WBC Urine 10-30/HPF (0-5/HPF)
[2020-11-03 08:54] LABS: Culture Indicated Urine Specimen Cultured
[2020-11-03] MEDS: INFLUENZA HD VACCINE 0.7 ML SYRINGE IM (10:29)
[2020-11-03] MEDS: SODIUM CHLORIDE 0.9% 1,000 ML 100 ML IV (10:30)
--- NOTE | 2020-11-03 10:37 | DI.MRI.S_ITS ---
PROCEDURE: MR HEAD/BRAIN WO CON INDICATIONS: CVA, elevated Cr unable to do contrast study TECHNIQUE: Noncontrast axial T1 spin echo, axial T2 fast spin echo, sagittal and axial FLAIR, coronal T2 fast spin echo, axial gradient echo, axial diffusion and ADC through the brain. COMPARISON: [facility], CT, CT HEAD/BRAIN WO CON, 11/03/2020, 8:10. FINDINGS: Image quality: Excellent. CSF Spaces: Basal cisterns are patent. No extra-axial fluid collections. Ventricles are normal in size and shape. Brain: No intracranial masses or hemorrhage. There are numerous tiny foci of restricted diffusion in the left cerebral hemisphere, predominantly in the cortical region of the left occipital lobe, but also in parietal and frontal deep white matter structures, also involving the right right frontal cortex near the vertex. Findings are consistent with embolic stroke. There is associated cytotoxic edema, predominantly in the occipital cortex. There is no significant mass effect. There is age-related volume loss and mild small vessel ischemic change. No evidence of acute hemorrhage. No hemosiderin deposition identified. Brainstem appears normal. Normal intravascular flow voids are present. Skull and face: Calvarium has normal marrow signal. Orbits appear normal. Sinuses: Sinuses and mastoids are clear. IMPRESSION: 1. Acute multifocal nonhemorrhagic infarct which predominantly involves the left occipital cortex, but also contains multifocal tiny areas of infarction in the left frontal lobe and parietal lobe. Findings are consistent with acute embolic infarct. Dictated by: Farzad Meneses M.D. on 11/03/2020 at 14:34 Approved by: Farzad Meneses M.D. on 11/03/2020 at 14:40
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
[2020-11-03] MEDS: CEFTRIAXONE 1 GM/50 ML FROZ.PIGGY IV (11:36)
[2020-11-03] MEDS: INSULIN ASPART 100 UNIT/ML INSULN PEN SUBCUT ×3 (12:29→21:30)
--- NOTE | 2020-11-03 13:17 | ST.IPSLE ---
Visit Care Team Role Provider Type Qamar Giron DO Emergency Provider Physician Referring Provider Specialty: Emergency Medicine Address: [address] [place] [address], [id number] Email: [email or web address] Albert Ruby DO Admit Provider Physician Attending Provider Specialty: Internal Medicine Address: [address] [place] [address], [id number] Email: [email or web address] Past Medical History (Last Reviewed 11/03/20 @ 08:07 by Qamar Giron DO) Borderline diabetes mellitus (Medical) BPH (benign prostatic hyperplasia) (Medical) TIA (transient ischemic attack) (Medical) Speech-Language Pathology Speech/Language Eval HEEL SEAT LASTER Adult Cognitive Linguistic Eval Start: 11/03/20 12:48 Freq: Status: Active Protocol: Document 11/03/20 12:49 LNK (Rec: 11/03/20 13:14 LNK [id number]) Adult Cognitive Linguistic Evaluation Session Time Visit Start Time 11:30 Visit Stop Time 12:00 Total Visit Minutes [address] Ruby Setting Assessment Location Outpatient Care Visit Type Note Type Initial evaluation Next Note Type Next Note Type Treatment Note Patient Information Identification Type Name,Wristband Medical History Per ED report: 70-year-old male nonsmoker with history of BPH, prior TIA, recent hospitalization for acute renal failure presents with a chief complaint concern that he has been having a stroke for the past 2 or 3 days. He was seen here on October 24 and transferred to [facility], discharged on October 30. He states that ever since his discharge he has been having visual disturbance in the right side of his visual field, and difficulty with speech. He states the right side of his body feels ?weird? but denies any specific numbness, tingling or weakness. NIH score in ED was 5. CT results negative. No evidence acute stroke, hemorrhage, or mass. Subjective Patient Report Pt was in his bed with a flat affect. He responded to questions with 1-2 words. 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 Assessment Oral Motor Examination Completed Yes: Informal observation noted structures to be WFL Informal Assessment Receptive Language Normal No: Had difficulty with following clock drawing directions Receptive Language Impairment(s) Following 3-step commands, Reading comprehension,Picture/ Object identification,Reading Expressive Language Normal No: Word-finding difficulty/ aphasia Expressive Language Impairment(s) Confrontation naming,Divergent naming,Expression of basic wants/needs,Expression of complex thoughts/ideas Pragmatic Language Impairment(s) Flat affect,Poor eye contact, Initiation Cognition Normal No: oriented x3; following complex directions was difficult Cognitive Impairment(s) Executive functioning,Thought organization Formal Assessment Results Informal assessment of cognition and language. Speech was 100% intelligible. Automatic speech/language observed. No s/sx dysarthria. Severe word-finding difficulty. Pt unable to name 6/6 pictures. Cookie theft picture indicated pt was aware of something wrong, but could not describe. He was able to tell me his name, the name of town, [place]. 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 He became frustrated and typically answered with I don 't know. He could read 5/9 words. Nursing reported that earlier this morning he was unable to read anything presented. Findings/Results Language Function Moderately-severely impaired Findings Moderate to expressive severe aphasia. Suspect mild cognitive deficits. Recommend ST for word-finding and expression of needs. Also recommend SLUMS to determine any cognition deficits. Cognitive Communication Deficits Self-awareness of Cognitive- Situational awareness ( Communication Deficits recognition of problem in context;in real time) Concomitant Factors Concomitant Factors Visual field neglect Comment Nursing reports when pt admitted he reported visual changes Prognosis Prognosis Good Based on Duration of symptoms/severity, Time since onset Plan of Care Speech-Language Treatment Yes Frequency 1-2x/day while inpatient Patient/Caregiver Education Described results of evaluation,Patient expressed understanding of evaluation, Patient expressed agreement with goals and treatment plans Short Term Goals using, gesture, verbal language, use of pictures.Pt will be able to name common items located in his room. Pt will be able to communicate basic needs (i.e., hungry, need bathroom, pain, etc) to nursing and staff using gesture, verbal language, use of pictures. 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 Discharge Recommendations Inpatient rehab facility,middle or intermediate school principal care facility,Home with Home Health,Outpatient therapy
--- NOTE | 2020-11-03 13:36 | DI.ECHO.S_ITS ---
[facility]---------+ [facility] +---------+ : : [address] : : : : [id number] : : : : Phone: [phone]+ Echocardiogram Report + + :Name: MAE REBOLLEDO Study Date: 11/04/2020 Height: 70 in : :[facility] Weight: 180 lb : : Gender: Male BSA: 2.0 m2 : :: 1950 Age: 70 yrs BP: 127/79 mmHg: :Reason For Study: CVA : :Ordering Physician: REBA, : :GT WILSON Performed By: Kat Roe : :Referring: GT BRITTON : + + Interpretation Summary 1) Normal left ventricular thickness, size, wall motion, and systolic function (EF 60-65%). 2) Normal right ventricular size and function. 3) There is mild bileaflet mitral valve prolapse. 4) There is mild to moderate mitral regurgitation. 5) No prior Echo available for comparison. Procedure: A two-dimensional transthoracic echocardiogram with color flow and Doppler was performed. The study quality was technically adequate. There is no prior echocardiogram noted for this patient. The patient was in sinus rhythm with heart rates between 77-81 bpm during the exam. Left Ventricle: The left ventricle is normal in size and wall thickness. The ejection fraction is estimated to be 60-65%. Left ventricular systolic function appears normal without focal wall motion abnormalities. Diastolic parameters suggest a pseudonormalization pattern, consistent with probable elevated filling pressures. Right Ventricle: The right ventricle is normal in size and function. Atria: Both atria are normal in size. There is no Doppler evidence for an interatrial shunt. Mitral Valve: There is mild mitral valve prolapse. There is mild to moderate mitral regurgitation. Aortic Valve: The aortic valve is trileaflet. The aortic valve opens well. There is no aortic valve stenosis. No aortic regurgitation is present. Tricuspid Valve: The tricuspid valve is normal in structure and function. Pulmonary artery pressures cannot be estimated because of the lack of a measurable TR jet velocity but the IVC suggests a CVP of around 3 mmHg. There is mild tricuspid regurgitation. Pulmonic Valve: The pulmonic valve leaflets are thin and pliable; valve motion is normal. There is no pulmonic valvular regurgitation. Great Vessels: The aortic root is normal size. The dimensions of the ascending aorta are normal. The IVC is of normal diameter and collapses greater than 50% with a sniff. This suggests a low right atrial pressure of 3 mm Hg. Pericardium/ Pleura There is no pericardial effusion. There is no pleural effusion. MMode/2D Measurements & Calculations LVIDd: 5.0 cm LVOT diam: 2.0 cm LVIDs: 3.3 cm Ao root diam: 3.8 cm FS: 34.4 % asc Aorta Diam: 3.3 cm EPSS: 1.2 cm Ao Arch Diam (Prox Trans): 2.7 cm IVSd: 1.0 cm LVPWd: 0.94 cm LV mccoy. diameter/BSA (cm/m^2): 2.5 LV sys. diameter/BSA (cm/m^2): 1.6 LA A2 area: 19.0 cm2 RA long axis: 4.7 cm LA A4 area: 14.9 cm2 RA area: 13.9 cm2 LA length (vol): 4.1 cm RA vol: 34.6 ml LA vol: 57.8 ml RA : 17.3 ml/m2 LA vol index: 29.0 ml/m2 IVC diam: 1.8 cm RVD1 (basal): 3.5 cm TAPSE: 2.0 cm Doppler Measurements & Calculations Ao V2 max: 133.1 cm/sec LVOT Max Gareth: 104.9 cm/sec Ao V2 mean: 90.6 cm/sec LV V1 max P.4 mmHg Ao max P.1 mmHg LV V1 VTI: 19.4 cm Ao mean P.9 mmHg ELIZABETH(I,D): 2.6 cm2 Ao V2 VTI: 23.4 cm ELIZABETH(V,D): 2.5 cm2 sev ratio: 0.83 ELIZABETH indexed to BSA (cm^2/m^2): 1.3 MV E max gareth: 71.3 cm/sec PA V2 max: 66.3 cm/sec MV A max gareth: 100.9 cm/sec PA V2 mean: 42.0 cm/sec MV E/A: 0.71 PA mean P.83 mmHg Med Peak E' Gareth: 3.9 cm/sec PA pr(Accel): 34.5 mmHg E/E' med: 18.5 Lat Peak E' Gareth: 3.8 cm/sec E/E' lat: 18.8 E/e' average: 18.7 MV dec time: 0.18 sec SVLVOT): 60.9 ml Reading Physician:01:04 PM
--- NOTE | 2020-11-03 14:05 | PC.ADMIT ---
[address] Admission Note: Safe hand off from ED. Patient arrived on unit at 0930. VSS. Tele was placed. Reading NS 1st degree AV. Patient has chronic serrano placement w/ leg bag. Bag dis attaches easily and must be monitored. Patient BS check before lunch was 345, 7 units Novolog given. Patient had initial NIH of 5 upon arriving and being tested. Expressive Aphasia, lack of vision in right eye and the edge of peripheral test. Patient has a flat affect. Normal saline is running at 100cc/hr. Nurse swallow evaluation done, patient has no swallowing issues. Patient was educated about the use of call light, bed is low and locked, bed alarm active. The patient,Jacques Barnett,70 y/o, was given written information regarding hospital policies, unit procedures and contact persons. Patient's smoking status: Never smoker. Vital Signs - 8 hr 11/03/20 07:50 11/03/20 08:00 11/03/20 08:17 Temperature 98.5 F Pulse Rate 103 H 99 H 92 H Respiratory Rate 16 21 19 Blood Pressure 165/74 H 165/65 H 163/71 H Pulse Oximetry 99 99 89 L 11/03/20 08:30 11/03/20 09:00 11/03/20 09:48 Temperature 97.2 F L Pulse Rate 92 H 85 85 Respiratory Rate 21 19 18 Blood Pressure 151/60 H 142/70 H 158/82 H Pulse Oximetry 99 97 99 11/03/20 09:58 11/03/20 13:48 Temperature Pulse Rate Respiratory Rate Blood Pressure Pulse Oximetry 98 98
[2020-11-03] MEDS: AMLODIPINE 5 MG TABLET PO (14:35)
[2020-11-03] MEDS: HEPARIN 5,000 UNIT/ML VIAL 5000 UNIT SUBCUT ×2 (14:35→21:30)
--- NOTE | 2020-11-03 14:36 | PM.CHAP ---
Received a call from priest Delfina at [facility], where Rev. Barnett lived at the [facility]. She plans to visit Pt on Tuesday afternoon and will be available to help fill in Pt's contact information. Harry Paige, [facility] [phone]
--- NOTE | 2020-11-03 15:52 | OT.IP.EVAL ---
Past Medical History (Last Updated 11/03/20 @ 13:47 by Albert Ruby DO) Borderline diabetes mellitus BPH (benign prostatic hyperplasia) CKD (chronic kidney disease) TIA (transient ischemic attack) Surgical History (Last Reviewed 11/03/20 @ 13:21 by Albert Ruby DO) No pertinent past surgical history Occupational Therapy Inpatient Evaluation/Re-Eval M1 PT/OT-IP Prior Functional Status Start: 11/03/20 16:48 Freq: NEEDED Status: Active Protocol: Document 11/03/20 15:52 [facility] (Rec: 11/03/20 17:25 [facility] [id number]) Medical Review Prior Functional Status Communication Pt now states at times having difficulty to get the words out. Mobility and Gait Pt states was able to walk 5 miles at time prior with no device. Activities of Daily Living and IADL's Completely independent with no devices. Social History Household Members none Living Arrangements House Number of Stairs To Enter/Railing? 17 steps with bilateral rails. Pt lives upstair from the [facility]. Home Environment Standard Height Toilet,Tub/ Shower Additional Social History Comment Pt has a tub only and takes bathes. 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 Patient/Caregiver Goals To get better. OT Pain Assessment Pain When Pain Assessed At Rest Pain Present Pain Present Denied Pain M4 OT- IP ADL's Start: 11/03/20 16:48 Freq: Status: Active Protocol: Document 11/03/20 15:52 [facility] (Rec: 11/03/20 17:25 [facility] [id number]) OT [id number] Comments OT Self-Feeding Comments NOt at meal time, however educated pt to keep his head slightly turned to the right due to decreased vision on the right. OT ADL-Grooming General Evaluation Areas Needing Assistance Retrieving/Set-up of Grooming Items Comments OT Grooming Comments Increased time for set-up by the pt due to decrease in vision , at times not able to see correctly to get the toothpaste on the toothbrush. OT ADL-Oral Care General Eval Oral Care Ability Independent OT ADL-Dressing General Eval Lower Body Dressing Ability Standby Assistance Comments OT Dressing Comments SBA while seated at the edge of the bed. OT ADL-Toileting Comments OT Toileting Comments Pt has a catheter in place but states did not have if before . OT ADL-Bathing Comments OT Bathing Comments NOt performed. M5 OT- IP IADL's Start: 11/03/20 16:48 Freq: Status: Active Protocol: Document 11/03/20 15:52 [facility] (Rec: 11/03/20 17:25 [facility] [id number]) OT-Instrumental Activities of Daily Living Home Safety Awareness Ability to Problem Solve Emergency Unable to Problem Solve Situations Home Safety Comments Pt has word finding issues and not able to to get the word for extinguisher out. Medication Management Medication Management Comments At this time would be best to have someone assist pt for all IADl , medications, and finance needs. M6 OT- IP Functional Cognition Start: 11/03/20 16:48 Freq: Status: Active Protocol: Document 11/03/20 15:52 [facility] (Rec: 11/03/20 17:25 [facility] [id number]) Cognitive Factors Limiting Selfcare Function Cognitive Ability Level of Alertness Alert Patient Orientation Name Attention Span Ability Capable of Focused Attention, Capable of Sustained Attention Ability to Follow Commands Able to Follow One Step Commands Memory Description Short Term Impaired Safety Awareness Underestimates Need for Assistance Problem Solving Ability Needs Assist to Identify Solutions Cognitive Comments Cognitive Assessment Comments Pt having some difficulty to get the words out and increased time at times to comprehend directions from therapist. Pt not able to tolerate formalized cognitive testing with pt as pt getting a little frustrated . Initiated [place] making Part B and unable to find the numbers gettiing frustrated as not able to find the numbers in the correct sequence on the page. OT- Vision and Hearing OT- Hearing Assessment OT- Hearing Assessment WFL OT- Vision Assessment Vision History Blurred Vision Visual Reyna Impaired Visual Spacial Neglect Right Vision Assessment Comments Pt vision appears to have right homonymous hemianopsia M7 OT- IP Mobility and Balance Start: 11/03/20 16:48 Freq: Status: Active Protocol: Document 11/03/20 15:52 [facility] (Rec: 11/03/20 17:25 [facility] [id number]) OT- Bed Mobility Assessment Rolling Level of Assistance Independent Supine to Sit Supine to Sit Assist Independent Sit to Supine Sit to Supine Assist Independent OT-Transfer Assessment Sit to and From Stand Sit to and from Stand Contact Guard Assistance Transfers Transfer Ability Contact Guard Assistance Technique Transfer Destination Bed Devices Transfer Assistive Devices Gait Belt Comments Mobility Comments Pt having slight unsteadiness on his feet but able to negotiate level surface in his room with CGA. Pt will needing more assist for various terrain pending the lighting in the room. OT- Balance Assessment Sitting Balance and Reactions Static Sitting Balance Ability Good Standing Balance and Reactions Static Standing Balance Ability Good M8 OT- IP Objective Assessments Start: 11/03/20 16:48 Freq: Status: Active Protocol: Document 11/03/20 15:52 [facility] (Rec: 11/03/20 17:25 [facility] [id number]) OT Gross Range of Motion Upper Extremity Range of Motion Assessment Within Functional Limits OT Strength Upper Extremity Strength Assessment Within Functional Limits OT- Coordination Assessment Comments Coordination Comments Decreased smoothness to brain picker objects with right hand. OT-Muscle Tone Assessment Muscle Tone WNL Yes M9 OT- IP Assessment and Plan Start: 11/03/20 16:48 Freq: Status: Active Protocol: Document 11/03/20 15:52 [facility] (Rec: 11/03/20 17:25 [facility] [id number]) OT Summary Assessment and Plan Potential Rehabilitation Potential Good Analytic Complexity at Evaluation Low Summary OT Impairments Balance,Coordination, Functional Cognition, Functional Mobility,Self- Feeding,Grooming,Dressing, Toileting,Bathing,Toilet Transfers,Shower Transfers Progress Towards Goals Slow Progress due to Medical Issues,Slow Progress due to Cognition Assessment Summary 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 Pt would would greatly benefit from acute rehab to work in compensatory strategies for his vision which is affecting his safety for ADl, IADl , and functional mobility needs. Goals Self-Feeding Goal Independent Grooming Goal Independent Dressing Goal Independent Toileting Goal Independent Bathing Goal Independent Toilet Transfer Goal Independent Shower Transfer Goal Independent Days to Meet Goals 20 Frequency of Treatment Frequency Of Treatment Once a Day Treatment Plan OT Treatment Plan ADL Training,Functional Cognition Training,Functional Mobility,Vision Retraining, Patient/Family Education, Discharge Planning Discharge Recommendations OT Discharge Recommendations Acute Rehab Transportation Needs at Discharge Private Vehicle,Wheelchair/ Cabulance
--- NOTE | 2020-11-03 17:00 | PT.IIE ---
Surgical History (Last Reviewed 11/03/20 @ 13:21 by Albert Ruby DO) No pertinent past surgical history Medical History (Last Updated 11/03/20 @ 13:47 by Albert Ruby DO) Borderline diabetes mellitus BPH (benign prostatic hyperplasia) CKD (chronic kidney disease) TIA (transient ischemic attack) Physical Therapy Inpatient Evaluation/Re-Eval M1 PT/OT-IP Prior Functional Status Start: 11/03/20 16:48 Freq: NEEDED Status: Active Protocol: Document 11/03/20 15:52 [facility] (Rec: 11/03/20 17:25 [facility] [id number]) Medical Review Prior Functional Status Communication Pt now states at times having difficulty to get the words out. Mobility and Gait Pt states was able to walk 5 miles at time prior with no device. Activities of Daily Living and IADL's Completely independent with no devices. Social History Household Members none Living Arrangements House Number of Stairs To Enter/Railing? 17 steps with bilateral rails. Pt lives upstairs from the [facility]. Home Environment Standard Height Toilet,Tub/ Shower Additional Social History Comment Pt has a tub only and takes bathes. M2 PT-IP Current Condition Start: 11/03/20 10:42 Freq: NEEDED Status: Active Protocol: Document 11/03/20 16:58 [facility] (Rec: 11/03/20 17:31 [facility] [id number]) Physical Therapy Current Condition Current Condition Evaluation Date 11/03/20 Treatment Diagnosis acute CVA; impaired vision; impaired balance; difficulty in walking Onset Date 10/31/20 Precautions Other Precautions chronic serrano M3 PT-IP Subjective Start: 11/03/20 10:42 Freq: NEEDED Status: Active Protocol: Document 11/03/20 16:58 [facility] (Rec: 11/03/20 17:31 [facility] [id number]) Subjective Physical Therapy Visit Type Type Initial Evaluation Visit Start Time 16:30 Visit Stop Time 16:54 Total Visit Minutes 24 Notes Pt is willing to participate with PT Number of OIL INSPECTOR Visits 0 Physical Therapy Visit Comments Patient Comments I feel fine, it's just my vision that's messed up. Therapy Pain Assessment Pain When Pain Assessed During Mobility Pain Present Pain Present Denied Pain M4 PT-IP Mobility and Gait Start: 11/03/20 10:42 Freq: NEEDED Status: Active Protocol: Document 12/28/20 16:58 [facility] (Rec: 11/03/20 17:31 AW [id number]) PT-Bed Mobility Assessment Supine to Sit Supine to Sit Standby Assistance Sit to Supine Sit to Supine Standby Assistance Scooting Scooting to Edge of Bed Standby Assistance PT-Transfer Assessment Sit to and From Stand Sit to and from Stand Contact Guard Assistance,Use of Upper Extremities Equipment Transfer Assistive Device Gait Belt Orthotic/Prosthetic Devices or Brace: No Transfers Transfer Destination Bed Transfer Technique Stand Step Pivot Transfer Ability Level of Assist Standby Assistance Comments Mobility Comments Pt was lying in the bed as PT arrived. Affect was flat and communication was short. Pt agreed to mobilize, completing supine to sit SBA. Pt sat EOB for assessment with good trunk control. He stood with initial unsteadiness requiring CGA. He then stepped away from the bed for static balance assessment before ambulating around the room CGA while reaching for objects and pedro to steady himself. Pt describes oscillipsia affecting the right side of the visual field in which vision is blurred, wavy and moving away from midline toward the right. Pt requested return to bed, complaining of fatigue after seeing all rehab disciplines today. Pt was positioned with call light and all needs in reach, bed alarm activated for safety. Gait Assessment Gait Gait Assistance Required: Contact Guard Assist Distance (Feet) 25 Assistive Devices Assistive Device Gait Belt Gait Deviations General Gait Pattern Ataxic,Decreased Stride Length ,Decreased Feet Clearance Factors Limiting Gait Function Factors Limiting Gait Function Decreased Sensation, Incoordination,Poor Balance, Poor Safety Awareness Comments Gait Comments See mobility comments for details. Stair Climbing Assessment Comments Stair Climbing Comments Not assessed. PT-Balance Assessment Sitting Balance and Reactions Static Sitting Balance Ability Good Dynamic Sitting Balance Ability Good Standing Balance and Reactions Static Standing Balance Ability Fair Dynamic Standing Balance Ability Fair Device Used no AD Balance Tests Single Limb Standing <2 sec bilaterally Romberg WNL EO and EC Tandem Standing requires assist to get in position, unable to maintain M5 PT-IP Objective Assessments Start: 11/03/20 10:42 Freq: NEEDED Status: Active Protocol: Document 11/03/20 16:58 [facility] (Rec: 11/03/20 17:31 AW [id number]) Orientation Orientation/Cognition Level of Alertness Alert Orientation Name,Day of Week,Place, Situation Language Function Ability No Deficits Noted Safety Awareness Decreased Safety Awareness Comments Affect is flat. Pt requiring increased processing time to answer certain questions. Gross Range of Motion Lower Extremity ROM Assessment Within Functional Limits Strength Lower Extremity Strength Assessment Within Functional Limits Comments Strength Comments No unilateral deficit on exam. Coordination Assessment Gross Coordination Gross Coordination Impaired Assessment Finger to Nose Test Minimal Impairment Pronation/Supination Test Minimal Impairment Foot Tapping Test Minimal Impairment Sensation Assessment Sensation Gross Sensation Right UE Impaired,Left UE Impaired Light Touch Impaired Sensation Description Numbness Comments Sensation Comments Pt reports intermittent numbness to bilateral hands Muscle Tone Muscle Tone WNL Yes Other Assessments Other Other Assessments Occulomotor exam was consistent with homonymous hemianopsia. Pt is aware of and frustrated with this impairment. He describes blurred vision on the right visual field and waviness that moves away from midline toward the right. Tracking was mildly impaired and testing triggered dizziness which quickly resolved. Vestibulooccular reflex was also impaired on head thrust testing, especially to the right side. M6 PT-IP Treatment Start: 11/03/20 10:42 Freq: NEEDED Status: Active Protocol: Document 11/03/20 16:58 [facility] (Rec: 11/03/20 17:31 AW [id number]) Physical Therapy Treatment Education Education Provided Precautions,Safety Other Treatments Other Treatment Performed Provided education on role of PT, plan of care, and balance systems integration. 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 Per MRI report, Acute multifocal nonhemorrhagic infarct which predominantly involves the left occipital cortex, but also contains multifocal tiny areas of infarction in the left frontal lobe and parietal lobe. Findings are consistent with acute embolic infarct. At evaluation, pt had not been informed of MRI results. He is independent in all regards at baseline. On evaluation, pt presents with right visual field deficits including oscillopsia and homonymous hemianopsia which are contributing to coordination and dynamic balance impairments. Pt would benefit from inpatient rehab focused on balance and gait impairments to improve pt's independent mobility and for return to baseline function. Goals Bed Mobility Goal Independent Transfer Goal Independent Gait Goal Independent Gait Distance 500 Other Goals - up/down 17 steps with B rails IND Days to Meet Goals 10 Frequency of Treatment Frequency Of Treatment Twice a Day Treatment Plan Physical Therapy Treatment Plan Bed Mobility Training,Transfer Training,Gait Training, Therapeutic Exercise,Balance Retraining,Discharge Planning, Neuromuscular Re-ed, Coordination Retraining Other Recommendations and Next Treatment high level balance assessment Focus such as Functional Gait Assessment; dynamic balance interventions Recommendations To Nursing Amount of Assist Needed 1 Person Assist Discharge Recommendations PT Discharge Recommendations Home with Assistance,Acute Rehab,Outpatient PT Other Discharge Recommendations acute rehab vs home with assist and outpatient PT Transportation Needs at Discharge Wheelchair/Cabulance
[2020-11-03] MEDS: INSULIN GLARGINE 100 UNIT/ML 3ML PEN 7 UNIT SUBCUT (21:30)
[2020-11-04] VITALS (11 sets, daily range): BP systolic 115–150; BP diastolic 73–81; PULSE 80–98; RESP 15–18; TEMP 36.6–37.1; O2SAT 94–99
[2020-11-04] MEDS: ACETAMINOPHEN 325 MG TABLET 650 MG PO ×2 (01:05→15:57)
[2020-11-04 05:16] LABS: Alanine Aminotransferase 13 IU/L (<50); Albumin 3.3 g/dL (3.5-5.0); Albumin Globulin Ratio 0.9 (1.0-2.8); Alkaline Phosphatase 72 U/L (38-126); Aspartate Aminotransferase 11 IU/L (17-59); BUN Creatinine Ratio 11.8 (6-22); Bilirubin Total 0.3 mg/dL (0.2-1.3); Blood Urea Nitrogen 38 mg/dL (9-20); Carbon Dioxide 22 mmol/L (22-32); Chloride 105 mmol/L (98-107); Cholesterol 188 mg/dL (140-199); Estimated Glomerular Filt Rate 19.1 mL/min (>60); Globulin 3.8 g/dL (1.7-4.1); Glucose 313 mg/dL (80-110); HDL Cholesterol 20 mg/dL (40-60); HEMOLYSIS < 15 (0-50); LDL Cholesterol Calculated 129 mg/dL (<100); Magnesium 1.9 mg/dL (1.6-2.3); Potassium 4.9 mmol/L (3.4-5.1); Sodium 132 mmol/L (137-145); Total Protein 7.1 g/dL (6.3-8.2); Triglycerides 197 mg/dL (35-150)
[2020-11-04 05:21] LABS: Hemoglobin A1C% w Est Avg Glu 10.2 % (4.0-6.0)
[2020-11-04 05:52] LABS: TSH w/ Reflex to FT4 2.62 uIU/mL (0.47-4.68)
[2020-11-04] MEDS: INSULIN ASPART 100 UNIT/ML INSULN PEN SUBCUT ×4 (09:09→20:58)
[2020-11-04] MEDS: HEPARIN 5,000 UNIT/ML VIAL 5000 UNIT SUBCUT ×2 (09:09→20:58)
[2020-11-04] MEDS: AMLODIPINE 5 MG TABLET PO (09:09)
[2020-11-04] MEDS: ASPIRIN EC 81 MG TABLET PO (09:10)
--- NOTE | 2020-11-04 10:36 | ST.IPTN ---
Visit Care Team Role Provider Type Qamar Giron DO Emergency Provider Physician Referring Provider Address: [address] [place] [address], [id number] Albert Ruby DO Admit Provider Physician Attending Provider Address: [address] [place] [address], [id number] SADDLE STITCH OPERATOR Treatment Note SADDLE STITCH OPERATOR Treatment Note Start: 11/03/20 12:48 Freq: Status: Active Protocol: Document 11/04/20 09:33 MG (Rec: 11/04/20 10:24 [facility] [id number]) Speech Pathology Treatment Note Session Time Visit Start Time 08:45 Visit Stop Time 09:15 Total Visit Minutes 30 Visit Information Visit Number 2 Setting Treatment Setting Acute Care Visit Type Note Type Treatment Note Next Note Type Next Note Type Treatment Note Subjective Identification Type Name,ID Wristband Chief Complaint(s) Speech,Cognitive,Other Additional Areas of Concern Reading abilities. Patient Knowledge/Awareness of SADDLE STITCH OPERATOR Role Fair in Treatment Patient/Caregiver Compliance with Home Fair Exercise Program Objective Short Term Goals 1. Pt will be able to name common items located in his room. 2. Pt will be able to communicate basic needs (i.e., hungry, need bathroom, pain, etc) to nursing and staff using gesture, verbal language , use of pictures. Nursing Home Goals 1. Pt will be able to express his immediate needs to nursing and staff using, gesture, verbal language, use of pictures. Treatment Activities Pt's conversational speech appears to be improving. Per nurse who worked with him yesterday, she has also noted improvement in his verbal skills such as naming objects. Per nurse, reading continues to be difficult for him. SADDLE STITCH OPERATOR had pt read various sentences on paper and observed difficulty. Pt reports fuzzy and obstructed vision in his right eye. Closing eye appeared to help him read words. As therapy progressed, pt began to display frustration and continually requested to read a book or scholarly article. Assessment Patient Response to Treatment Fair Rehab Potential Fair Impairments Identified Expressive Language,Receptive Language,Other Additional Impairments Identified Vision Progress Towards Goals Good Progress Assessment of Overall Progress Improving Assessment of Improvement Per reports, pt appears to be gaining verbal communication skills compared to yesterday. Continuation of speech therapy is warrants to further assess his level of communication if he continues to regain skills . Reviewed with Patient Goals,Progress Being Made Patient/Caregiver Understanding Good Plan Therapeutic Contents Cognitive-Linguistic Training, Expressive Language Training, Receptive Language Training Provided Patient/Caregiver Instruction Questions/Concerns Therapy Recommendations Continue with Current Program Comment To further assess progress, x1 -x2
[2020-11-04] MEDS: CEFTRIAXONE 1 GM/50 ML FROZ.PIGGY IV (11:05)
--- NOTE | 2020-11-04 12:45 | PT.IPTN ---
Physical Therapy Treatment Note M2 PT-IP Current Condition Start: 11/03/20 10:42 Freq: NEEDED Status: Active Protocol: Document 11/03/20 16:58 AW (Rec: 11/03/20 17:31 AW [id number]) Physical Therapy Current Condition Current Condition Evaluation Date 11/03/20 Treatment Diagnosis acute CVA; impaired vision; impaired balance; difficulty in walking Onset Date 10/31/20 Precautions Other Precautions chronic serrano M3 PT-IP Subjective Start: 11/03/20 10:42 Freq: NEEDED Status: Active Protocol: Document 11/04/20 12:30 HH (Rec: 11/04/20 12:45 HH [id number]) Subjective Physical Therapy Visit Type Type Treatment Note Visit Start Time 10:18 Visit Stop Time 10:49 Total Visit Minutes 31 Notes Pt is willing to participate with PT Physical Therapy Visit Comments Patient Comments I think my vision is getting slightly better same for my balance Therapy Pain Assessment Pain When Pain Assessed During Mobility Pain Present Pain Present Denied Pain M4 PT-IP Mobility and Gait Start: 11/03/20 10:42 Freq: NEEDED Status: Active Protocol: Document 11/04/20 12:30 HH (Rec: 11/04/20 12:45 HH [id number]) PT-Bed Mobility Assessment Supine to Sit Supine to Sit Standby Assistance Sit to Supine Sit to Supine Standby Assistance Scooting Scooting to Edge of Bed Standby Assistance PT-Transfer Assessment Sit to and From Stand Sit to and from Stand Contact Guard Assistance,Use of Upper Extremities Equipment Transfer Assistive Device Gait Belt Orthotic/Prosthetic Devices or Brace: No Transfers Transfer Destination Bed,Chair Transfer Technique Stand Step Pivot Transfer Ability Level of Assist Standby Assistance Comments Mobility Comments Pt was lying in bed upon PT arrival. Affect was flat and communication was short. Agreeable to mobilize with PT. Supine to sit SBA and sat at L EOB for reassessment. He demonstrated good trunk control but noticed he had to rotate his head to R often to use his L peripheral vision to see. He was able to stand up with SBA and WBOS. His first few steps was somewhat unsteady and able to correct himself. pt currently tends to use his L leg and L to lead during mobility. He completed FGA test followed by amb half of the AC unit. He needed cues for directional guidance and obstacles negotiation minimally. He needed SBA/CGA for turns occasionally. He also completed stair climbing: ascend with step over pattern with L rail; step to pattern for descend with R rail ( slower). He walked back to his room and he needed surface support to walk around his bed d/t dimmer lighting. Pt sat in chair comfortably after BP 139/96. Call light placed within reach Gait Assessment Gait Gait Assistance Required: Standby Assistance,Contact Guard Assist Distance (Feet) 180 Able to Maintain Weight Bearing Status Yes During Gait Assistive Devices Assistive Device Gait Belt Orthotic/Prosthetic Devices or Brace: No Gait Deviations General Gait Pattern Ataxic,Decreased Stride Length ,Decreased Feet Clearance Factors Limiting Gait Function Factors Limiting Gait Function Decreased Sensation, Incoordination,Poor Balance, Poor Safety Awareness Comments Gait Comments See mobility comments for details. Stair Climbing Assessment Evaluation Level of Assist On Stairs Contact Guard Assistance Devices Stair Climbing Assistive Devices Left Railing Technique/Endurance Stair Climbing Direction Ascend and Descend Stair Climbing Technique Step Over Step,Step to Step Number of Steps Climbed 3 Stair Climbing Set # Repetitions (reps) 2 Comments Stair Climbing Comments see nmobility comments. PT-Balance Assessment Sitting Balance and Reactions Static Sitting Balance Ability Good Dynamic Sitting Balance Ability Good Standing Balance and Reactions Static Standing Balance Ability Fair Dynamic Standing Balance Ability Fair Device Used no AD Balance Tests Single Limb Standing <2 sec bilaterally Romberg WNL EO and EC Tandem Standing requires assist to get in position, unable to maintain Comments Other Balance Tests/Deviations/Treatment head thrust = +ve on R : VOR = +ve on R nose to finger= impairment on R visual field Functional Assessments Functional Tests Functional Gait Assessment Other Functional Tests Performed significant difficulty with walking with head turns, quick turns and NBOS. Pt tends to lead with L side of the body to assess his environment. M5 PT-IP Objective Assessments Start: 11/03/20 10:42 Freq: NEEDED Status: Active Protocol: Document 11/03/20 16:58 AW (Rec: 11/03/20 17:31 AW [id number]) Orientation Orientation/Cognition Level of Alertness Alert Orientation Name,Day of Week,Place, Situation Language Function Ability No Deficits Noted Safety Awareness Decreased Safety Awareness Comments Affect is flat. Pt requiring increased processing time to answer certain questions. Gross Range of Motion Lower Extremity ROM Assessment Within Functional Limits Strength Lower Extremity Strength Assessment Within Functional Limits Comments Strength Comments No unilateral deficit on exam. Coordination Assessment Gross Coordination Gross Coordination Impaired Assessment Finger to Nose Test Minimal Impairment Pronation/Supination Test Minimal Impairment Foot Tapping Test Minimal Impairment Sensation Assessment Sensation Gross Sensation Right UE Impaired,Left UE Impaired Light Touch Impaired Sensation Description Numbness Comments Sensation Comments Pt reports intermittent numbness to bilateral hands Muscle Tone Muscle Tone WNL Yes Other Assessments Other Other Assessments Occulomotor exam was consistent with homonymous hemianopsia. Pt is aware of and frustrated with this impairment. He describes blurred vision on the right visual field and waviness that moves away from midline toward the right. Tracking was mildly impaired and testing triggered dizziness which quickly resolved. Vestibulooccular reflex was also impaired on head thrust testing, especially to the right side. M6 PT-IP Treatment Start: 11/03/20 10:42 Freq: NEEDED Status: Active Protocol: Document 11/03/20 16:58 AW (Rec: 11/03/20 17:31 AW [id number]) Physical Therapy Treatment Education Education Provided Precautions,Safety Other Treatments Other Treatment Performed Provided education on role of PT, plan of care, and balance systems integration. M7 PT-IP Assessment and Plan Start: 11/03/20 10:42 Freq: NEEDED Status: Active Protocol: Document 11/04/20 12:30 HH (Rec: 11/04/20 12:45 HH [id number]) PT Summary Assessment and Plan Potential Rehabilitation Potential Good Status of Condition at Evaluation Evolving Summary Impairments Balance,Coordination,Sensation ,Transfers,Gait,Activity Tolerance Progress Towards Goals Progressing Toward Goals Assessment Summary Jacques has shown less assistance needed for overall mobility: SBA for bed mobility, SBA/CGA for transfers and gait without AD. Pt shows improved compensatory strategies for mobility. His FGA scores only 16/30 with significant difficulty during walking with head turns, quick turns and NBOS. His hemianopsia still presents which signifciant affect his balance and functional activities. This inevitably increase his fall risks for further injury. I personally believes patient will benefit from acute rehab for intensive therapy to learn compensatory strategies for daily activites in order to be safe. Goals Bed Mobility Goal Independent Transfer Goal Independent Gait Goal Independent Gait Distance 500 Other Goals - up/down 17 steps with B rails IND Days to Meet Goals 10 Frequency of Treatment Frequency Of Treatment Twice a Day Treatment Plan Physical Therapy Treatment Plan Bed Mobility Training,Transfer Training,Gait Training, Therapeutic Exercise,Balance Retraining,Discharge Planning, Neuromuscular Re-ed, Coordination Retraining Other Recommendations and Next Treatment high level balance assessment Focus such as Functional Gait Assessment; dynamic balance interventions Recommendations To Nursing Amount of Assist Needed 1 Person Assist Discharge Recommendations PT Discharge Recommendations Home with Assistance,Acute Rehab,Outpatient PT Other Discharge Recommendations acute rehab vs home with assist and outpatient PT Transportation Needs at Discharge Wheelchair/Cabulance
--- NOTE | 2020-11-04 13:57 | OT.IP.TRT ---
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 Patient/Caregiver Goals TO get better. OT Pain Assessment Pain When Pain Assessed At Rest Pain Present Pain Present Denied Pain M4 OT- IP ADL's Start: 11/03/20 16:48 Freq: Status: Active Protocol: Document 11/03/20 15:52 [facility] (Rec: 11/03/20 17:25 [facility] [id number]) OT [id number] Comments OT Self-Feeding Comments NOt at meal time, however educated pt to keep his head slightly turned to the left due to decreased vision on the right. OT ADL-Grooming General Evaluation Areas Needing Assistance Retrieving/Set-up of Grooming Items Comments OT Grooming Comments Increased time for set-up by the pt due to decrease in vision , at times not able to see correctly to get the toothpaste on the toothbrush. OT ADL-Oral Care General Eval Oral Care Ability Independent OT ADL-Dressing General Eval Lower Body Dressing Ability Standby Assistance Comments OT Dressing Comments SBA while seated at the edge of the bed. OT ADL-Toileting Comments OT Toileting Comments Pt has a catheter in place but states did not have if before . OT ADL-Bathing Comments OT Bathing Comments NOt performed. M5 OT- IP IADL's Start: 11/03/20 16:48 Freq: Status: Active Protocol: Document 11/03/20 15:52 [facility] (Rec: 11/03/20 17:25 [facility] [id number]) OT-Instrumental Activities of Daily Living Home Safety Awareness Ability to Problem Solve Emergency Unable to Problem Solve Situations Home Safety Comments Pt has word finding issues and not able to to get the word for extinguisher out. Medication Management Medication Management Comments At this time would be best to have someone assist pt for all IADl , medications, and finance needs. M6 OT- IP Functional Cognition Start: 11/03/20 16:48 Freq: Status: Active Protocol: Document 11/04/20 13:25 [facility] (Rec: 11/04/20 14:22 [facility] [id number]) Cognitive Factors Limiting Selfcare Function Cognitive Ability Level of Alertness Alert Patient Orientation Name,Place,Situation Attention Span Ability Capable of Focused Attention, Capable of Sustained Attention Ability to Follow Commands Able to Follow One Step Commands Safety Awareness Underestimates Need for Assistance Problem Solving Ability Unable to Identify Errors, Needs Assist to Identify Solutions Cognitive Comments Cognitive Assessment Comments Pt initially not able to draw in all the numbers on the clock as forgetting to write in the 12, after pointing it out able to write in the 12. Pt not able to draw in the hours hands correctly after time given and insistent that he was correct and then finally came to the realization that he was incorrect. Pt having trouble getting the words out, initiation and initially when pointing to letters unable to say what the letter were and then after helping the pt identify the first few letters and then able to says the letter automatically. Pt has good understanding of strategies for right homonymous hemianopsia but fair for being able to recall the strategies. Pt gets frustrated and then has more difficult with initiation and word finding. Able to place tape over power button to help located on the call light for pt. Pt insists I will just figure out, I have worked with people with mental and visual needs. When asking the pt to identify some strategies of how he use to assist those with visual impairments, pt not able to state. OT- Vision and Hearing OT- Vision Assessment Vision Assessment Comments Pt's right eye pt still complaining of wavy but occluded vision on the right side of right eye. Pt states does better when he is able to close his right eye and just use his left which he in only able to see on the peripheral side of the left eye. M7 OT- IP Mobility and Balance Start: 11/03/20 16:48 Freq: Status: Active Protocol: Document 11/04/20 13:25 [facility] (Rec: 11/04/20 14:22 [facility] [id number]) OT-Transfer Assessment Comments Mobility Comments Pt tends to slouch in bed and cues to sit upright by scooting himself all the way up in bed. 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 OT-Muscle Tone Assessment Muscle Tone WNL Yes M9 OT- IP Assessment and Plan Start: 11/03/20 16:48 Freq: Status: Active Protocol: Document 11/04/20 13:25 [facility] (Rec: 11/04/20 14:22 [facility] [id number]) OT Summary Assessment and Plan Potential Rehabilitation Potential Excellent Analytic Complexity at Evaluation Low Summary OT Impairments Balance,Coordination, Functional Cognition, Functional Mobility,Self- Feeding,Grooming,Dressing, Toileting,Bathing,Toilet Transfers,Shower Transfers Progress Towards Goals Slow Progress due to Medical Issues,Slow Progress due to Cognition Assessment Summary Pt would highly benefit form acute rehab to help pt cope and practice compensatory techniques so able to return to being independent for IADL, money management, ADL's, use of TV remote, cell phone, and able to navigate safely in the environment. Pt is highly motivated to get better and willing to do what it takes to get better and is a good candidate for acute rehab. Goals Self-Feeding Goal Independent Grooming Goal Independent Dressing Goal Independent Toileting Goal Independent Bathing Goal Independent Toilet Transfer Goal Independent Shower Transfer Goal Independent OT-Other Goals Pt to be able to incorporate visual strategies to help manage his right homonymous hemianopsia to increase safety and independence for ADL, IADl , and mobility needs. Days to Meet Goals 19 Frequency of Treatment Frequency Of Treatment Once a Day Treatment Plan OT Treatment Plan ADL Training,Functional Cognition Training,Functional Mobility,Vision Retraining, Patient/Family Education, Discharge Planning Discharge Recommendations OT Discharge Recommendations Acute Rehab Transportation Needs at Discharge Private Vehicle
--- NOTE | 2020-11-04 14:59 | CM.DPNOTE ---
Addendum entered by Shyann Soliz 11/04/20 15:11: Faxed H&P also for referral. Original Note: Faxed PT/OT/ST & FS to [facility] per Leandra on 11/04/20. Shyann Soliz CM Asst.
--- NOTE | 2020-11-04 15:12 | CM.DPNOTE ---
Faxed to [facility] Referral information (FS, H&P, ST/OT/PT maria esther Mobley. Shyann Soliz CM Asst.
--- NOTE | 2020-11-04 15:42 | CM.DANOTE ---
DCP/Assessment: Reviewed chart. Patient is a 70yr old male admitted [facility] with [facility]. No PCP listed. Primary payor is 1)[employer]age 2)Medicaid. Met with patient and friend/Serina at bedside explained CM/SW role. Currently patient with deficits related to CVA. Current therapy recommendation is SNF and/or acute inpatient rehabilitation. Patient agreeable to short stay once ENTRY LEVEL ASSISTANT MANAGER fully explained. Friend/Serina in favor and supportive of decision. Patient primarily I prior to admit. 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 He has room on 3rd floor. 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 Serina glad to find out patient has insurance. Patient shook his head in agreement to short rehab/SNF stay. ENTRY LEVEL ASSISTANT MANAGER requested THERAPEUTIC DIETITIAN/Shyann fax to both [facility] and [facility]. P: Anticipate SNF vs acute rehabilitation at time of d/c. Both reviewing for admit. Anticipate d/c in 24-48hrs. 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 friend/Marcelino Barnett phone# [phone] Advance Directives? No History Provided By Patient,Friend,Medical Record Prior Living Arrangements House Comment Patient has housing at [facility]. Household Members none Type of transporation used prior to Public Transportation admit Comment Patient does not own automobile. Independent with ADL's Yes Is patient alert and oriented? Yes: CVA deficits i.e. word finding and visual field. Caregiver for Another No Comment Per patient and friend/Serina patient I prior to admit. Patient/Family Preference Residential Facility Discharge Plan Residential Facility Transportation Arrangement Pending Referrals Initiated Residential,Other Additional Comment Sent referrals to [facility] and [facility] rehabilitation. Whiteboard Updated in Patient Room with Yes name and ext. # of Sock And Stocking Ironer Review Status In Process Next Review Type Continued Stay Review
--- NOTE | 2020-11-04 16:26 | P.PN_ITS ---
Subjective Subjective Date Patient Seen: 11/04/20 Time Patient Seen: 16:26 Interval history: Jacques Barnett is a 70-year-old male with a past medical history of type 2 diabetes, BPH with chronic urinary obstruction and Serrano catheter placement, prior TIA, hypertension, and CKD stage 4 who presented to the emergency room for evaluation of a right-sided visual field deficit and difficulty speaking which started 4 days prior to this admission. MRI showed multiple acute infarcts consistent with atrial fibrillation / embolic source. MRI was a non-contrast study given his RADHA on CKD. PT recommended acute rehab vs home with outpatient PT. OT recommending acute rehab. He reports feeling somewhat improved today, but still complains of visual defect although he thinks his word finding difficulties are improving. His creatinine improved slightly to 3.23 today. Glucose elevated will increase to 15 U lantus from 7 tonight. Have ordered a carotid study for vascular imaging, started on statin therapy given DM and LDL of 129. Exam Vital Signs (past 8 hours): - 11/04/20 10:00 11/04/20 11:00 11/04/20 14:00 Temperature 98.2 F Pulse Rate 98 H Respiratory Rate 15 Blood Pressure 115/79 Pulse Oximetry 98 99 98 11/04/20 15:34 Temperature 97.8 F Pulse Rate 88 Respiratory Rate 16 Blood Pressure 141/77 H Pulse Oximetry 97 Oxygen Delivery Method Room Air Oxygen Flow Rate 0 Narrative Exam Narrative: GENERAL APPEARANCE: Well developed, well nourished, in no acute distress. SKIN: Inspection of the skin reveals no rashes, ulcerations or petechiae. HEENT: Normocephalic atraumatic, extraocular muscles are intact, oropharynx is clear and mucous membranes are moist, neck is supple without adenopathy NECK: Supple and symmetric. There was no thyroid enlargement, and no tenderness, or masses were felt. CHEST: Normal AP diameter and normal contour without any kyphoscoliosis. LUNGS: Auscultation of the lungs revealed no wheezes, rhonchi, or rales. CARDIOVASCULAR: There was a regular rate and rhythm without any murmurs, gallops, rubs. Peripheral pulses were 2+ and symmetric. ABDOMEN: Soft and nontender with normal bowel sounds. No ascites was noted. MUSCULOSKELETAL: There was no tenderness or effusions noted. Muscle strength and tone were normal. EXTREMITIES: No cyanosis, clubbing or edema. NEUROLOGIC: Alert and oriented x 3. Normal affect. Gait was normal. Strength is +5/5 in the Upper Extremities and Lower Extremities Bilaterally. Sensation to touch was normal. Objective Labs Result Diagrams: 11/03/20 08:03 11/04/20 04:51 Labs: Laboratory Results - last 24 hr 11/04/20 11/04/20 11/04/20 04:51 04:51 04:51 Sodium 132 L Potassium 4.9 Chloride 105 Carbon Dioxide 22 BUN 38 H Creatinine 3.23 H Estimated GFR 19.1 L BUN/Creatinine Ratio 11.8 Glucose 313 H D Hemoglobin A1c 10.2 H Calcium 8.0 L Magnesium 1.9 Total Bilirubin 0.3 AST 11 L ALT 13 Alkaline Phosphatase 72 Total Protein 7.1 Albumin 3.3 L Globulin 3.8 Albumin/Globulin Ratio 0.9 L Triglycerides 197 H Cholesterol 188 LDL Cholesterol, Calc 129 H HDL Cholesterol 20 L TSH 2.62 PFSH Medical History (Updated 11/03/20 @ 13:47 by Albert Ruby DO) Borderline diabetes mellitus BPH (benign prostatic hyperplasia) CKD (chronic kidney disease) TIA (transient ischemic attack) Surgical History No pertinent past surgical history Social History household members: none Smoking Status: Never smoker alcohol intake: current Assessment & Plan Assessment & Plan narrative: Jacques Barnett is a 70-year-old male with a past medical history of type 2 diabetes, BPH with chronic urinary obstruction and Serrano catheter placement, prior TIA, hypertension, and CKD stage 4 who presented to the emergency room for evaluation of a right-sided visual field deficit and difficulty speaking which started 4 days prior to this admission, admitted with likely acute CVA. 1. Acute CVA, present on admission, active - patient presents with 4 days of word finding difficulties, visual field deficits. CT head negative for hemorrhage. NIHSS of 5 on admission. - unable to obtain MR with contrast due to CKD and Cr of 3.6 on admission (although this is stable from 10/30). Brain MRI without contrast showed acute multifocal nonhemorrhagic infarct which predominantly involves the left occipital cortex, but also contains multifocal tiny areas of infarction in the left frontal lobe and parietal lobe. Findings are consistent with acute embolic infarct. - differential includes metabolic encephalopathy from acute cystitis, hyperglycemia, or other source. - TTE with normal EF and no overwhelming evidence of atrial fibrillation or significant valvular pathology. - PT/OT/Speech evaluations ordered, unclear if acute rehab or SNF at this time depending on insurance authorization. - consider full anticoagulation for afib after 7 days, however at this time no telemetry findings and echo is not consistent with afib. Have started asa and lipitor. Would recommend holter monitor or implanted loop recorder as an outpatient if no afib found during admission. - have ordered carotid ultrasound for vascular imaging given unable to obtain MR angiography given elevated Cr. 2. Type II diabetes with hypergylcemia, chronic, active - patient with glucose of 421 on admission. Start sliding scale and basal insulin therapy tonight. According to discharge paperwork was on 7 Units of lantus upon discharge which was insufficient today, will increase to 15 units tonight. - A1c 10/24 9.2, repeated this admission now 10.2%. 3. Acute on chronic kidney failure, CKD IV, present on admission - patient with admission Cr of 3.61, previous baseline appears to be 2.6 per outside records. Cr has improved since 10/24 in ER when his Cr was 6. Discharge value from [facility] was 3.5. Improved slightly today to 3.23. - acute component thought to be due to obstruction, chronic portion appears to be the result of HTN and DM, perhaps worsened by chronic obstruction. 4. BPH with chronic obstructive uropathy, present on admission - continue serrano catheter, recommended for urology follow up in [place] per [facility] discharge summary. 5. Acute cystitis, present on admission - Admission UA showing 10-30 WBC, moderate bacteria, and sent for culture. Previous culture with aerococcus urinae. Have started ceftraixone x7 days (12/14 today) for complicated UTI. He was not discharged on abx from [facility] per medication list. - urine culture currently with multiple organisms, follow up final culture and sensitivites. 6. HTN - will resume home amlodipine 5 mg which was started at [facility], unclear if compliant with therapy upon discharge. Also started on coreg per nephrology consultation but will hold off on restarting at this time. DVT: HSQ Code: Full, surrogate decision maker is the patient's daughter he states Dispo: admitted under inpatient status. Anticipate discharge to SNF or acute rehab, timing unclear but possibly in the next 1-2 days. Quality VTE Deep Vein Thrombosis/Pulmonary Embolism Present on Admission: No
--- NOTE | 2020-11-04 16:40 | DI.US.S_ITS ---
PROCEDURE: US CAROTID DOPPLER BI INDICATIONS: CVA TECHNIQUE: Color and pulse Doppler interrogation was performed of both carotid systems, with image documentation and velocity measurements. COMPARISON: None. FINDINGS: Stenosis calculations are based on SRU (Society of Radiologists in Ultrasound) criteria. Right side: Brachial blood pressure: 141/77 mm Hg. Common carotid artery peak systolic velocity: 91 cm/sec. Internal carotid artery peak systolic velocity: 118 cm/sec. Internal carotid artery end diastolic velocity: 25 cm/sec. External carotid artery peak systolic velocity: 112 cm/sec. ICA/CCA peak systolic ratio: 1.3 . Denson scale imaging description: Calcified plaque at the bifurcation and tortuous appearance Percent internal carotid artery stenosis: Less than 50% . Vertebral artery: Flow direction is antegrade. Left side: Brachial blood pressure: 141/77 mm Hg. Common carotid artery peak systolic velocity: 110 cm/sec. Internal carotid artery peak systolic velocity: 160 cm/sec. Internal carotid artery end diastolic velocity: 38 cm/sec. External carotid artery peak systolic velocity: 147 cm/sec. ICA/CCA peak systolic ratio: 1.46 . Denson scale imaging description: Calcified plaque at the bifurcation Percent internal carotid artery stenosis: 50-69% . Vertebral artery: Flow direction is antegrade. IMPRESSION: 50-69% left ICA stenosis. Less than 50% right ICA stenosis Dictated by: Miko Heaton M.D. on 11/04/2020 at 18:30 Approved by: Miko Heaton M.D. on 11/04/2020 at 18:31
--- NOTE | 2020-11-04 16:46 | PT.IPTN ---
Physical Therapy Treatment Note M2 PT-IP Current Condition Start: 11/03/20 10:42 Freq: NEEDED Status: Active Protocol: Document 11/03/20 16:58 AW (Rec: 11/03/20 17:31 AW [id number]) Physical Therapy Current Condition Current Condition Evaluation Date 11/03/20 Treatment Diagnosis acute CVA; impaired vision; impaired balance; difficulty in walking Onset Date 10/31/20 Precautions Other Precautions chronic serrano M3 PT-IP Subjective Start: 11/03/20 10:42 Freq: NEEDED Status: Active Protocol: Document 11/04/20 16:22 HH (Rec: 11/04/20 16:46 HH [id number]) Subjective Physical Therapy Visit Type Type Treatment Note Visit Start Time 16:00 Visit Stop Time 16:26 Total Visit Minutes 26 Notes Pt is willing to participate with PT Physical Therapy Visit Comments Patient Comments I think my vision is getting slightly better and same for my balance Therapy Pain Assessment Pain When Pain Assessed During Mobility Pain Present Pain Present Denied Pain M4 PT-IP Mobility and Gait Start: 11/03/20 10:42 Freq: NEEDED Status: Active Protocol: Document 11/04/20 16:22 HH (Rec: 11/04/20 16:46 HH [id number]) PT-Bed Mobility Assessment Supine to Sit Supine to Sit Standby Assistance Sit to Supine Sit to Supine Standby Assistance Scooting Scooting to Edge of Bed Standby Assistance PT-Transfer Assessment Sit to and From Stand Sit to and from Stand Standby Assistance,Contact Guard Assistance,Use of Upper Extremities Equipment Transfer Assistive Device Gait Belt Orthotic/Prosthetic Devices or Brace: No Transfers Transfer Destination Bed Transfer Technique Stand Step Pivot Transfer Ability Level of Assist Standby Assistance Comments Mobility Comments Pt was lying in bed upon PT arrival. He stated My vision is better i think. Agreeable to mobilize with PT. Supine to sit SBA and sat at R EOB. He stood up with SBA and able to walk out in hallway with CGA. Instructed pt to constantly rotate his head to R to widen his limited visual field. Pt often had difficulty identify words/ numbers on the wall which on his R side. Cues needed for head rotation to R for surroundings assessment. Pt tends to lead with his L leg / L UE during amb and often has mild L side drift. However, he was unsteady occasionally but able to correct himself. Pt amb approx 300 ft without AD CGA. He returned to bed after and call light placed within reach . Gait Assessment Gait Gait Assistance Required: Standby Assistance,Contact Guard Assist Distance (Feet) 300 Able to Maintain Weight Bearing Status Yes During Gait Assistive Devices Assistive Device Gait Belt Orthotic/Prosthetic Devices or Brace: No Gait Deviations General Gait Pattern Ataxic,Decreased Stride Length ,Decreased Feet Clearance Factors Limiting Gait Function Factors Limiting Gait Function Decreased Sensation, Incoordination,Poor Balance, Poor Safety Awareness Comments Gait Comments See mobility comments for details. PT-Balance Assessment Sitting Balance and Reactions Static Sitting Balance Ability Good Dynamic Sitting Balance Ability Good Standing Balance and Reactions Static Standing Balance Ability Fair Dynamic Standing Balance Ability Fair Device Used no AD Functional Assessments Other Functional Tests Performed significant difficulty with walking with head turns, quick turns and NBOS. Pt tends to lead with L side of the body to assess his environment. M5 PT-IP Objective Assessments Start: 11/03/20 10:42 Freq: NEEDED Status: Active Protocol: Document 11/03/20 16:58 AW (Rec: 11/03/20 17:31 AW [id number]) Orientation Orientation/Cognition Level of Alertness Alert Orientation Name,Day of Week,Place, Situation Language Function Ability No Deficits Noted Safety Awareness Decreased Safety Awareness Comments Affect is flat. Pt requiring increased processing time to answer certain questions. Gross Range of Motion Lower Extremity ROM Assessment Within Functional Limits Strength Lower Extremity Strength Assessment Within Functional Limits Comments Strength Comments No unilateral deficit on exam. Coordination Assessment Gross Coordination Gross Coordination Impaired Assessment Finger to Nose Test Minimal Impairment Pronation/Supination Test Minimal Impairment Foot Tapping Test Minimal Impairment Sensation Assessment Sensation Gross Sensation Right UE Impaired,Left UE Impaired Light Touch Impaired Sensation Description Numbness Comments Sensation Comments Pt reports intermittent numbness to bilateral hands Muscle Tone Muscle Tone WNL Yes Other Assessments Other Other Assessments Occulomotor exam was consistent with homonymous hemianopsia. Pt is aware of and frustrated with this impairment. He describes blurred vision on the right visual field and waviness that moves away from midline toward the right. Tracking was mildly impaired and testing triggered dizziness which quickly resolved. Vestibulooccular reflex was also impaired on head thrust testing, especially to the right side. M6 PT-IP Treatment Start: 11/03/20 10:42 Freq: NEEDED Status: Active Protocol: Document 11/04/20 16:22 HH (Rec: 11/04/20 16:46 [id number]) Physical Therapy Treatment Education Education Provided Precautions,Safety Other Treatments Other Treatment Performed education on compensatory strategie for surroundings assessment during mobility, use of head rotation to widen his visual field M7 PT-IP Assessment and Plan Start: 11/03/20 10:42 Freq: NEEDED Status: Active Protocol: Document 11/04/20 16:22 (Rec: 11/04/20 16:46 [id number]) PT Summary Assessment and Plan Potential Rehabilitation Potential Good Status of Condition at Evaluation Evolving Summary Impairments Balance,Coordination,Sensation ,Transfers,Gait,Activity Tolerance Progress Towards Goals Progressing Toward Goals Assessment Summary this session focused on educating pt regarding compensatory strategies during mobility. Pt has difficulty identifying words on his R visual field and needed cues to use head rotation to widen his visual field. Pt is a good candidate for acute rehab to improve his safety awareness and learn compensatory strategies to be independent for ADLS/ IADLS etc. Goals Bed Mobility Goal Independent Transfer Goal Independent Gait Goal Independent Gait Distance 500 Other Goals - up/down 17 steps with B rails IND Days to Meet Goals 10 Frequency of Treatment Frequency Of Treatment Twice a Day Treatment Plan Physical Therapy Treatment Plan Bed Mobility Training,Transfer Training,Gait Training, Therapeutic Exercise,Balance Retraining,Discharge Planning, Neuromuscular Re-ed, Coordination Retraining Other Recommendations and Next Treatment high level balance assessment Focus such as Functional Gait Assessment; dynamic balance interventions Recommendations To Nursing Amount of Assist Needed 1 Person Assist Discharge Recommendations PT Discharge Recommendations Home with Assistance,Acute Rehab,Outpatient PT Other Discharge Recommendations acute rehab vs home with assist and outpatient PT Transportation Needs at Discharge Wheelchair/Cabulance
[2020-11-04] MEDS: ATORVASTATIN 20 MG TABLET 40 MG PO (20:58)
[2020-11-04] MEDS: INSULIN GLARGINE 100 UNIT/ML 3ML PEN 15 UNIT SUBCUT (20:59)
[2020-11-04] MEDS: SODIUM CHLORIDE 0.9% FLUSH 10 ML IV (21:33)
[2020-11-05] VITALS: O2SAT 96
[2020-11-05 00:20] VITALS: BP 115/71; PULSE 76; RESP 16; TEMP 36.2; O2SAT 96
[2020-11-05] MEDS: ACETAMINOPHEN 325 MG TABLET 650 MG PO ×2 (01:35→10:00)
[2020-11-05 04:00] VITALS: O2SAT 98
[2020-11-05 05:30] VITALS: BP 130/77; PULSE 78; RESP 16; TEMP 35.8; O2SAT 98
[2020-11-05 05:43] LABS: Add Manual Diff / Slide Review NO; Basophils Absolute Auto 100 /uL (0-100); Basophils Percent Auto 1.1 % (0-2); Eosinophils Absolute Auto 100 /uL (0-450); Eosinophils Percent Auto 1.1 % (2-4); Hematocrit 35.4 % (41-53); Hemoglobin 11.6 g/dL (13.5-17.5); Lymphocytes Absolute Auto 1300 /uL (1100-4500); Lymphocytes Percent Auto 12.4 % (25-40); Mean Corpuscular HGB Conc 32.9 % (30-36); Mean Corpuscular Hemoglobin 28.4 PG (26-34); Mean Corpuscular Volume 86.6 fL (80-100); Monocytes Absolute Auto 700 /uL (0-900); Monocytes Percent Auto 7.2 % (3-14); Neutrophils Absolute Auto 8100 /uL (1500-7000); Neutrophils Percent Auto 78.2 % (50-75); Platelet Count 274 X10^3/uL (150-400); Red Blood Cell Count 4.09 X10^6/uL (4.5-5.9); Red Cell Distribution Width 13.3 % (11.6-14.8); White Blood Cell Count 10.3 X10^3/uL (4.5-11.0)
[2020-11-05 05:55] LABS: Alanine Aminotransferase 12 IU/L (<50); Albumin 3.4 g/dL (3.5-5.0); Albumin Globulin Ratio 0.9 (1.0-2.8); Alkaline Phosphatase 71 U/L (38-126); Aspartate Aminotransferase 14 IU/L (17-59); BUN Creatinine Ratio 12.3 (6-22); Bilirubin Total 0.2 mg/dL (0.2-1.3); Blood Urea Nitrogen 39 mg/dL (9-20); Calcium 8.4 mg/dL (8.4-10.2); Carbon Dioxide 22 mmol/L (22-32); Chloride 105 mmol/L (98-107); Estimated Glomerular Filt Rate 19.4 mL/min (>60); Globulin 3.9 g/dL (1.7-4.1); Glucose 213 mg/dL (80-110); HEMOLYSIS < 15 (0-50); Magnesium 1.9 mg/dL (1.6-2.3); Potassium 4.5 mmol/L (3.4-5.1); Sodium 133 mmol/L (137-145); Total Protein 7.3 g/dL (6.3-8.2)
[2020-11-05 07:46] VITALS: BP 144/79; PULSE 77; RESP 13; TEMP 36.3; O2SAT 94
[2020-11-05] MEDS: ASPIRIN EC 81 MG TABLET PO (08:21)
[2020-11-05] MEDS: AMLODIPINE 5 MG TABLET PO (08:21)
[2020-11-05] MEDS: INSULIN ASPART 100 UNIT/ML INSULN PEN SUBCUT ×2 (08:24→11:45)
[2020-11-05] MEDS: HEPARIN 5,000 UNIT/ML VIAL 5000 UNIT SUBCUT (08:24)
--- NOTE | 2020-11-05 09:01 | PT.IPTN ---
Physical Therapy Treatment Note M2 PT-IP Current Condition Start: 11/03/20 10:42 Freq: NEEDED Status: Active Protocol: Document 11/03/20 16:58 AW (Rec: 11/03/20 17:31 AW [id number]) Physical Therapy Current Condition Current Condition Evaluation Date 11/03/20 Treatment Diagnosis acute CVA; impaired vision; impaired balance; difficulty in walking Onset Date 10/31/20 Precautions Other Precautions chronic serrano M3 PT-IP Subjective Start: 11/03/20 10:42 Freq: NEEDED Status: Active Protocol: Document 11/05/20 08:50 SAK (Rec: 11/05/20 09:01 SAK [id number]) Subjective Physical Therapy Visit Comments Patient Comments Patient reports no change in his vision today. Denies pain. Therapy Pain Assessment Pain When Pain Assessed During Mobility Pain Present Pain Present Allowed to Sleep M4 PT-IP Mobility and Gait Start: 11/03/20 10:42 Freq: NEEDED Status: Active Protocol: Document 11/05/20 08:50 SAK (Rec: 11/05/20 09:01 SAK [id number]) PT-Bed Mobility Assessment Supine to Sit Supine to Sit Standby Assistance Sit to Supine Sit to Supine Standby Assistance Scooting Scooting to Edge of Bed Standby Assistance PT-Transfer Assessment Sit to and From Stand Sit to and from Stand Standby Assistance,Contact Guard Assistance,Use of Upper Extremities Equipment Transfer Assistive Device Gait Belt Orthotic/Prosthetic Devices or Brace: No Transfers Transfer Destination Bed Transfer Technique Stand Step Pivot Transfer Ability Level of Assist Standby Assistance Comments Mobility Comments Patient in bed with HOB elevated upon PT arriving, patient willing to work with PT. Gait Assessment Gait Gait Assistance Required: Standby Assistance,Contact Guard Assist,Minimum Assistance Distance (Feet) 300 Able to Maintain Weight Bearing Status Yes During Gait Assistive Devices Assistive Device Gait Belt Orthotic/Prosthetic Devices or Brace: No Gait Deviations General Gait Pattern Ataxic,Decreased Stride Length ,Decreased Feet Clearance Factors Limiting Gait Function Factors Limiting Gait Function Decreased Sensation, Incoordination,Poor Balance, Poor Safety Awareness Comments Gait Comments Initially patient able to ambulate with SBA to CG, but about assisted through walk patient demonstrated notable decline in balance and difficulty avoiding obstacles; at that point he required CG to min assist for balance and more verbal cues and guidance to return to his room. Patient assisted back to bed with head of bed elevated. WOODWORKING MACHINE OPERATOR and RN notified of patient status. WOODWORKING MACHINE OPERATOR putting HOB up and helping patient get settled with call light when PT left. PT-Balance Assessment Sitting Balance and Reactions Static Sitting Balance Ability Good Dynamic Sitting Balance Ability Good Standing Balance and Reactions Static Standing Balance Ability Fair Dynamic Standing Balance Ability Poor Balance Tests Single Limb Standing <2 sec bilaterally Tandem Standing requires assist to get in position, unable to maintain M5 PT-IP Objective Assessments Start: 11/03/20 10:42 Freq: NEEDED Status: Active Protocol: Document 11/05/20 08:50 [facility] (Rec: 11/05/20 09:01 [facility] [id number]) Orientation Orientation/Cognition Level of Alertness Alert Orientation Name,Situation Language Function Ability No Deficits Noted Comments Affect is flat. Pt requiring increased processing time to answer certain questions. Coordination Assessment Gross Coordination Gross Coordination Impaired M6 PT-IP Treatment Start: 11/03/20 10:42 Freq: NEEDED Status: Active Protocol: Document 11/05/20 08:50 [facility] (Rec: 11/05/20 09:01 [facility] [id number]) Physical Therapy Treatment Other Treatments Other Treatment Performed education on compensatory strategie for surroundings assessment during mobility, use of head rotation to widen his visual field M7 PT-IP Assessment and Plan Start: 11/03/20 10:42 Freq: NEEDED Status: Active Protocol: Document 11/05/20 08:50 [facility] (Rec: 11/05/20 09:01 [facility] [id number]) PT Summary Assessment and Plan Potential Rehabilitation Potential Good Status of Condition at Evaluation Evolving Summary Impairments Balance,Coordination,Sensation ,Transfers,Gait,Activity Tolerance Progress Towards Goals Progressing Toward Goals Assessment Summary Patient initially doing well with mobility but assisted through walk demonstrated more difficulty requiring more physical and verbal assistance for safety. WOODWORKING MACHINE OPERATOR and nursing informed. Pt is a good candidate for acute rehab to improve his safety awareness and learn compensatory strategies to be independent for ADLS/ IADLS etc. Goals Bed Mobility Goal Independent Transfer Goal Independent Gait Goal Independent Gait Distance 500 Other Goals - up/down 17 steps with B rails IND Days to Meet Goals 10 Frequency of Treatment Frequency Of Treatment Twice a Day Treatment Plan Physical Therapy Treatment Plan Bed Mobility Training,Transfer Training,Gait Training, Therapeutic Exercise,Balance Retraining,Discharge Planning, Neuromuscular Re-ed, Coordination Retraining Other Recommendations and Next Treatment high level balance assessment Focus such as Functional Gait Assessment; dynamic balance interventions Recommendations To Nursing Amount of Assist Needed Independent Discharge Recommendations PT Discharge Recommendations Acute Rehab Other Discharge Recommendations At this time feel patient will need acute rehab at discharge from hospital. Transportation Needs at Discharge Wheelchair/Cabulance
[2020-11-05] MEDS: SODIUM CHLORIDE 0.9% FLUSH 10 ML IV (10:02)
--- NOTE | 2020-11-05 10:17 | PC.NURSE ---
Addendum entered by Janel Boyd R.N. 11/05/20 15:12: Report called to Charo at [facility]. Ride will be here at 1530 to get patient. Addendum entered by Janel Boyd R.N. 11/05/20 13:51: Patient gave himself a shower with the help of occupational therapy. He is a one person mod assist to ambulate and min assist to help himself in the shower. Patient has a flat affect. He is aware that he will be discharging to [facility]. Original Note: Assess- Patient is A&Ox3 but he does have some slight confusion. He worked with physical therapy this morning, using a walker and PT said by the end of walk he was becoming more unsteady. NIH score 3. Patient has some aphagia and issues with reading sentences, and word finding. He is not seeing well out of his r.eye so this may contribute not being able to read sentences right. Given tylenol for headache, patient is not having any issues with swallowing pills or eating. He is slightly impusive at times, he was reaching for his breakfast and tray was far away from him. He was also taking large bites of his eggs. This RN helped patient cut his food and he seemed to do better. He is resting comfortably on his back.
[2020-11-05] MEDS: carvediloL 3.125 MG TABLET PO (10:34)
[2020-11-05] MEDS: CLOPIDOGREL 75 MG TABLET PO (10:34)
[2020-11-05] MEDS: levoFLOXacin 750 MG/150 ML PIGGYBACK 100 MG IV (10:35)
[2020-11-05 11:38] VITALS: BP 155/82; PULSE 87; RESP 15; TEMP 36.2; O2SAT 97
--- NOTE | 2020-11-05 11:56 | ST.IPTN ---
Visit Care Team Role Provider Type Qamar Giron DO Emergency Provider Physician Referring Provider Address: [address] [place] [address], [id number] Albert Ruby DO Admit Provider Physician Attending Provider Address: [address] [place] [address], [id number] BATTERY SERVICE TECHNICIAN Treatment Note BATTERY SERVICE TECHNICIAN Treatment Note Start: 11/03/20 12:48 Freq: Status: Active Protocol: Document 11/05/20 11:46 MG (Rec: 11/05/20 11:56 MG [id number]) Speech Pathology Treatment Note Session Time Visit Start Time 07:55 Visit Stop Time 08:10 Total Visit Minutes 15 Visit Information Visit Number 3 Setting Treatment Setting Acute Care Visit Type Note Type Treatment Note Next Note Type Next Note Type Treatment Note General Information General Information Jacques Barnett is a 70-year-old male with a past medical history of type 2 diabetes, BPH with chronic urinary obstruction and Harper catheter placement, prior TIA, hypertension, and CKD stage 4 who presented to the emergency room for evaluation of a right-sided visual field deficit and difficulty speaking which started 4 days prior to this admission. He was recently admitted to [facility] for acute renal failure secondary to urinary obstruction and acute cystitis. He states that the right side of his vision has wavy lines, and he has been having word-finding difficulties since shortly after departing from [facility]. He denies any numbness, tingling, imbalance, weakness, facial droop. He denies any recent fevers, chills, abdominal pain , nausea, vomiting. Subjective Identification Type Name,ID Wristband Observations/Patient Presentation Pt was resting in bed and agreeable to BATTERY SERVICE TECHNICIAN entering the room. Pt reports no change in his vision today but feels that his speech is getting better. In a conversational setting, word finding difficulties are evident and appear to leave the pt feeling frustrated. Pt made little eye contact and had a flat affect. Chief Complaint(s) Speech,Cognitive,Other Additional Areas of Concern Reading abilities. Patient Knowledge/Awareness of BATTERY SERVICE TECHNICIAN Role Fair in Treatment Patient/Caregiver Compliance with Home Fair Exercise Program Objective Short Term Goals 1. Pt will be able to name common items located in his room. 2. Pt will be able to communicate basic needs (i.e., hungry, need bathroom, pain, etc) to nursing and staff using gesture, verbal language , use of pictures. Youth Specialist Goals 1. Pt will be able to express his immediate needs to nursing and staff using, gesture, verbal language, use of pictures. Treatment Activities Pt's conversational speech appears to be improving from yesterday. Reading continues to be difficult for him; this could be due to his vision deficits. Pt reports fuzzy and obstructed vision in his right eye. Closing eye appeared to help him read words. SLUMS was administered to the pt. Due to vision deficits, modifications were made such as enlarging the shapes and clock image. Pt scored a 13/30. Pt appeared to take some time to answer questions, but would frequently say, I don't know . Results should be interpreted with caution due to vision deficits. As testing progressed, his frustration began to show. BATTERY SERVICE TECHNICIAN and pt discussed word finding difficulties and strategies to help with word retrieval. Pt began to get a headache and reported he wanted to rest, so therapy was concluded after testing. Pt has no further questions prior to BATTERY SERVICE TECHNICIAN exiting room. Assessment Patient Response to Treatment Fair Rehab Potential Fair Impairments Identified Expressive Language,Receptive Language,Other Additional Impairments Identified Vision Progress Towards Goals Good Progress Assessment of Overall Progress Improving Assessment of Improvement Per reports, pt appears to be gaining verbal communication skills compared to yesterday. Continuation of speech therapy is warrants to further assess his level of cognitive communication if he continues to regain skills and work on word finding difficulties. Reviewed with Patient Goals,Progress Being Made Patient/Caregiver Understanding Good Plan Therapeutic Contents Cognitive-Linguistic Training, Expressive Language Training, Receptive Language Training Provided Patient/Caregiver Instruction Questions/Concerns Therapy Recommendations Continue with Current Program Comment To further assess progress, x1 -x2
--- NOTE | 2020-11-05 12:59 | PM.DS.1 ---
History of Present Illness History of Present Illness Date Patient Seen: 11/03/20 Chief complaint: thinks having a stroke Narrative: Written by Dr. Ruby: Jacques Barnett is a 70-year-old male with a past medical history of type 2 diabetes, BPH with chronic urinary obstruction and Harper catheter placement, prior TIA, hypertension, and CKD stage 4 who presented to the emergency room for evaluation of a right-sided visual field deficit and difficulty speaking which started 4 days prior to this admission. He was recently admitted to [facility] for acute renal failure secondary to urinary obstruction and acute cystitis. He states that the right side of his vision has wavy lines, and he has been having word-finding difficulties since shortly after departing from [facility]. He denies any numbness, tingling, imbalance, weakness, facial droop. He denies any recent fevers, chills, abdominal pain, nausea, vomiting.\ From review of his discharge summary he was to have started amlodipine 5 mg but did not and was not taking any medications for diabetes. His A1c from approximately 10 days ago was 9.2. In the emergency room, he was mildly hypertensive, but the remainder of his vitals are unremarkable. Laboratory evaluation showed a mild leukocytosis at 15.3 which is slightly lower than his ER visit / transfer to [facility] on 10 24. Chemistries revealed a sodium of 129, creatinine of 3.61 (3.56 @ [facility] on 10/30), glucose of 421, troponin was negative. Urinalysis revealed 10-30 white blood cells per high-power field and moderate bacteria, specimen was sent for culture. COVID-[address] head was negative for acute hemorrhage. NIH stroke scale in the ER was 5, again 5 upon arrival to the floor. Admitted for further management of likely acute CVA. Discharge Providers Provider Date of admission: 11/03/20 09:06 Discharge Date: 11/05/20 Consults: 11/03/20 09:49 Consult to Occupational Therapy Evaluate & Treat Comment: Physician Instructions: Evaluate and treat Consult to Physical Therapy Evaluate & Treat Comment: Physician Instructions: Evaluate and Treat 11/03/20 09:50 Consult to Speech Therapy Evaluate & Treat Comment: Physician Instructions: Evaluate and treat Discharge provider: Francie Torres DO Summary Hospital Course Discharge Diagnosis: 1. Acute CVA, present on admission. Active. 2. Diabetes mellitus type II, chronic, present on admission. Improved. 3. Acute kidney injury on CKD IV, present on admission. RADHA likely resolved. 4. BPH with chronic obstructive uropathy, present on admission. 5. Acute UTI, present on admission. Resolving. 6. Hypertension, chronic, present on admission. Stable. Hospital Course: Jacques Barnett is a 70-year-old male with a past medical history of diabetes mellitus type II, BPH with chronic urinary obstruction and Harper catheter placement, prior TIA, hypertension, and CKD stage 4 who presented to the ED for evaluation of a right-sided visual field deficit and difficulty speaking which started 4 days prior to this admission. 1. Acute CVA, present on admission. Active. -Patient presented with 4 days of word finding difficulties and right-sided visual field deficits. -NIHSS of 5 on admission. -CT brain without contrast negative for hemorrhage. -Brain MRI without contrast demonstrated acute multifocal nonhemorrhagic infarct which predominantly involves the left occipital cortex, but also contains multifocal tiny areas of infarction in the left frontal lobe and parietal lobe. Findings are consistent with acute embolic infarct. -Bilateral Carotid Doppler Ultrasound demonstrated 50-69% left ICA stenosis and less than 50% right ICA stenosis -Echocardiogram did not demonstrate embolic source or PFO. Patient with normal EF, no evidence of atrial fibrillation or significant valvular pathology. -Continued to monitor closely on telemetry. Patient remained in sinus rhythm without significant ectopy or evidence of atrial fibrillation. -Continued physical, occupational, and speech therapy evaluation and treatment. Patient discharged to [facility] for continued [facility]. -Continued aspirin 81 mg daily, clopidogrel 75 mg daily x 3 weeks and atorvastatin 40 mg daily at bedtime. Although CVA mutifocal appears embolic no evidence of atrial fibrillation to start anticoagulation and recommend Holter monitor for 30 days. 2. Diabetes mellitus type II, chronic, present on admission. Improved. -Hemoglobin A1C 10.2% indicative of poor glycemic control. Unclear but likely relatively new diagnosis for patient. -Continued [facility] blood glucose checks and medium dose correctional scale insulin. -Continued Lantus increased from 7 units (started at [facility]) to 15 units daily at bedtime. -Continued heart healthy/carbohydrate consistent diet. -Consulted german professor and we appreciate her time and recommendations. 3. Acute kidney injury on CKD IV, present on admission. RADHA likely resolved. -Acute component thought to be due to obstruction from BPH. Chronic portion appears to be the result of hypertension and diabetes. -Creatinine 3.61 on admission. Baseline creatinine appears to be 2.6 per outside records. Creatinine improved to 3.18 compared to discharge value from [facility] was 3.5. -Avoided nephrotoxic agents. -Continued Harper catheter as below. -Continued to monitor creatinine daily. 4. BPH with chronic obstructive uropathy, present on admission. -Continued Harper catheter. Recommended urology follow-up per [facility] discharge summary prior to removal of Harper catheter. 5. Acute UTI, present on admission. Resolving. -Urine culture grew pseudomonas and citrobacter sensitive to levofloxacin. -Continued levofloxacin 750 mg every 48 hours for 3 days for a total of 7 days of antibiotic treatment. 6. Hypertension, chronic, present on admission. Stable. -Continued home amlodipine 10 mg daily and carvedilol 3.125 mg twice daily which was started at [facility] and is unclear if patient was compliant with therapy upon discharge. Exam Vital Signs (past 8 hours): - 11/05/20 05:30 11/05/20 07:46 11/05/20 11:38 Temperature 96.5 F L 97.4 F L 97.2 F L Pulse Rate 78 77 87 Respiratory Rate 16 13 15 Blood Pressure 130/77 144/79 H 155/82 H Pulse Oximetry 98 94 97 Oxygen Delivery Method Room Air Oxygen Flow Rate 0 Narrative Exam Narrative: General: Elderly male sitting in bed and in no acute distress, disheveled with poor hygeine, poor insight, mildly anxious but otherwise appropriately interactive HEENT: Normocephalic, atraumatic. External ears without defect. Pupils equal, round, and reactive to light. Right hemianospia. Anicteric sclerae, moist conjunctivae, and no lid lag. Oropharynx free of erythema and cobble stoning with moist mucosa. Neck: Supple with full range of motion. No jugular venous distension. No bruits. No lymphadenopathy or thyromegaly. Cardiovascular: Regular rate and rhythm without murmurs, rubs, or gallops appreciated. Pulmonary: Clear to auscultation bilaterally without crackles, wheezes, or rhonchi. Normal respiratory effort with no use of accessory muscles. Abdomen: Soft, bowel sounds present, nontender, nondistended. No hepatosplenomegaly or masses appreciated. Extremities: No clubbing, cyanosis, or edema. Skin: Normal temperature, turgor, and texture; no rash, ulcers, or subcutaneous nodules appreciated. Neurological: Right hemianopsia. No facial droop or slurred speech. Discoordination and imbalance. Mild right LE weakness. Sensory function within normal limits. Psychiatric: Mildly anxious mood and affect. Poor insight. Alert and oriented to person, place, and time. Probable mild cognitive impairment with short term memory recall deficit. Objective Labs Result Diagrams: 11/05/20 05:26 11/05/20 05:26 Labs: Laboratory Results - last 24 hr 11/05/20 11/05/20 05:26 05:26 WBC 10.3 RBC 4.09 L Hgb 11.6 L Hct 35.4 L MCV 86.6 MCH 28.4 MCHC 32.9 RDW 13.3 Plt Count 274 Neut % (Auto) 78.2 H Lymph % (Auto) 12.4 L Mercer % (Auto) 7.2 Eos % (Auto) 1.1 L Baso % (Auto) 1.1 Neut # (Auto) 8100 H Lymph # (Auto) 1300 Mercer # (Auto) 700 Eos # (Auto) 100 Baso # (Auto) 100 Sodium 133 L Potassium 4.5 Chloride 105 Carbon Dioxide 22 BUN 39 H Creatinine 3.18 H Estimated GFR 19.4 L BUN/Creatinine Ratio 12.3 Glucose 213 H D Calcium 8.4 Magnesium 1.9 Total Bilirubin 0.2 AST 14 L ALT 12 Alkaline Phosphatase 71 Total Protein 7.3 Albumin 3.4 L Globulin 3.9 Albumin/Globulin Ratio 0.9 L [facility] Medical History (Updated 11/08/20 @ 00:00 by ) Borderline diabetes mellitus BPH (benign prostatic hyperplasia) CKD (chronic kidney disease) TIA (transient ischemic attack) Surgical History No pertinent past surgical history Social History household members: none Smoking Status: Never smoker alcohol intake: current Discharge Plan Discharge Plan Patient Disposition: SNF Transfer to: [facility] Under care of provider: director global intelligence Provider Discharge Comment: Recommend 30 day holter monitor for arrhythmia Discharge orders & Medications Prescriptions: New aspirin 81 mg Tablet,Delayed Release (Dr/Ec) 81 mg PO DAILY Qty: 30 RF: 0 Lantus Solostar U-100 Insulin 100 unit/mL (3 mL) Insulin Pen 15 unit SUBCUT 2100 Qty: 15 RF: 0 insulin aspart U-100 [Novolog Flexpen U-100 Insulin] 100 unit/mL (3 mL) Insulin Pen See Rx Instructions .ROUTE .COMPLEX Qty: 15 RF: 0 atorvastatin 40 mg tablet 40 mg PO BEDTIME Qty: 30 RF: 0 amlodipine 10 mg tablet 10 mg PO DAILY Qty: 30 RF: 0 levofloxacin 750 mg tablet 750 mg PO Q48H Qty: 3 RF: 0 clopidogrel 75 mg Tablet 75 mg PO DAILY Qty: 20 RF: 0 carvedilol [Coreg] 3.125 mg Tablet 3.125 mg PO BID Qty: 60 RF: 0 tamsulosin [Flomax] 0.4 mg Capsule 0.4 mg PO DAILY Qty: 30 RF: 0 Diet/Activity/Treatments Diet: Carb-consistent/Diabetic, Low-fat, Low-sodium and Low-cholesterol Activity: Activity as tolerated with walker and physical and occupational therapy Catheter: 2-way Harper Catheter comment: change every 3 weeks, do not remove until f/u with urology [facility] Reason for rehabilitation: Therapy following stroke Rehab type: Physical therapy and Occupational therapy Quality VTE Deep Vein Thrombosis/Pulmonary Embolism Present on Admission: No
--- NOTE | 2020-11-05 13:17 | CM.DPC ---
Addendum entered by Leandra Ortiz 11/05/20 14:34: Patient's friend collection team lead/Serina notified of d/c plan. She will f/u with patient at [facility]. Patient notified. KJS Original Note: DCP continued: Received notification from provider that patient medically stable for discharge today. Patient declined at acute inpatient rehabilitation but accepted at [facility] (pending authorization). Received call from [employer] this afternoon indicating authorization has been obtained from [employer]. Transport scheduled for 3:30pm this afternoon. RN updated and PASRR completed. Patient aware and agreeable to plan. Patient aware that insurance has authorized SNF stay. No facility in [place] contracted with [employer]. P: [facility] today. GERSON Barrera
--- NOTE | 2020-11-05 13:25 | OT.IP.TRT ---
Current Diagnoses Cerebral infarction, unspecified (11/03/20) Occupational Therapy Treatment Note M2 OT-IP Current Condition Start: 11/03/20 16:48 Freq: Status: Active Protocol: Document 11/03/20 15:52 [facility] (Rec: 11/03/20 17:25 [facility] [id number]) Occupational Therapy Current Condition Current Condition Evaluation Date 11/03/20 Treatment Diagnosis Left occipital cortex, multi tiny areas of infarction left frontal & Diagnosis Onset Date 11/03/20 M3 OT- IP Subjective and Pain Start: 11/03/20 16:48 Freq: Status: Active Protocol: Document 11/05/20 13:52 [facility] (Rec: 11/05/20 14:08 [facility] [id number]) OT- Subjective Occupational Therapy Visit Type Type Treatment Note Visit Start Time 12:57 Visit Stop Time 13:25 Total Visit Minutes 28 Occupational Therapy Visit Comments Patient Comments Pt agreeable to shower. Patient/Caregiver Goals TO get better so he is able to go home. M4 OT- IP ADL's Start: 11/03/20 16:48 Freq: Status: Active Protocol: Document 11/05/20 13:52 [facility] (Rec: 11/05/20 14:08 [facility] [id number]) OT ADL-Dressing General Eval Lower Body Dressing Ability Contact Guard Assistance Comments OT Dressing Comments CGA while standing to pull up the brief over his hips for balance. OT ADL-Bathing Bathing Type Bathing Type Shower General Evaluation Bathing Ability Minimal Assistance Areas Needing Assistance Wash/Dry Upper Body Comments OT Bathing Comments VC for completeness and needing cues to wash thoroughly for pericare needs. M6 OT- IP Functional Cognition Start: 11/03/20 16:48 Freq: Status: Active Protocol: Document 11/05/20 13:52 [facility] (Rec: 11/05/20 14:08 [facility] [id number]) Cognitive Factors Limiting Selfcare Function Cognitive Ability Patient Orientation Name,Place,Situation Attention Span Ability Capable of Focused Attention, Capable of Sustained Attention Ability to Follow Commands Able to Follow One Step Commands Memory Description Short Term Impaired Safety Awareness Underestimates Need for Assistance Problem Solving Ability Unable to Identify Errors, Needs Assist to Identify Solutions Cognitive Comments Cognitive Assessment Comments Per BATHING SUIT MAKER note, pt scored 13/30. Pt needing cue for his vision to look to the right to find the shower knob and then forgot and needing cues again to turn his head to look to the right to be able to turn off the water. Pt needing cues to be sure to wash every body part in the shower. Pt has BM of the towel but insisting not needing to have to use the toilet. OT- Vision and Hearing OT- Vision Assessment Vision Assessment Comments Left eye appears to have greater vision on nasal side versus yesterday not able to see as far over to the right. M7 OT- IP Mobility and Balance Start: 11/03/20 16:48 Freq: Status: Active Protocol: Document 11/05/20 13:52 [facility] (Rec[facility] 11[facility]05/20 14[id number]- Bed Mobility Assessment Rolling Level of Assistance Independent Supine to Sit Supine to Sit Assist Independent Sit to Supine Sit to Supine Assist Independent OT-Transfer Assessment Sit to and From Stand Sit to and from Stand Standby Assistance Transfers Transfer Ability Standby Assistance,Contact Guard Assistance Technique Transfer Destination Bed,Shower Stall Devices Transfer Assistive Devices None Comments Mobility Comments CGA while stepping over the threshold of the shower. OT- Balance Assessment Sitting Balance and Reactions Static Sitting Balance Ability Normal Dynamic Sitting Balance Ability Normal Standing Balance and Reactions Static Standing Balance Ability Good M8 OT- IP Objective Assessments Start: 11/03/20 16:48 Freq: Status: Active Protocol: Document 11/03/20 15:52 [facility] (Rec: 11/03/20 17:25 [id number] OT Gross Range of Motion Upper Extremity Range of Motion Assessment Within Functional Limits OT Strength Upper Extremity Strength Assessment Within Functional Limits OT- Coordination Assessment Comments Coordination Comments Decreased smoothness to picket [employer] objects with right hand. OT-Muscle Tone Assessment Muscle Tone WNL Yes M9 OT- IP Assessment and Plan Start: 11/03/20 16:48 Freq: Status: Active Protocol: Document 11/05/20 13:52 [facility] (Rec: 11/05/20 14:08 [facility] [id number]) OT Summary Assessment and Plan Potential Rehabilitation Potential Good Analytic Complexity at Evaluation Low Summary OT Impairments Balance,Coordination, Functional Cognition, Functional Mobility,Self- Feeding,Grooming,Dressing, Toileting,Bathing,Toilet Transfers,Shower Transfers Progress Towards Goals Slow Progress due to Cognition Assessment Summary Pt appears to be able to incorporate compensatory strategies for shower but still needing vc for completeness and reminders to look to the right to find objects. Pt would strongly benefit from acute rehab versus skilled rehab to continue to work on cognitive needs, and his vision as it affects his safety for ADl and functional mobility needs. Goals Self-Feeding Goal Independent Grooming Goal Independent Dressing Goal Independent Toileting Goal Independent Bathing Goal Independent Toilet Transfer Goal Independent Shower Transfer Goal Independent Days to Meet Goals 15 Frequency of Treatment Frequency Of Treatment Once a Day Treatment Plan OT Treatment Plan ADL Training,Functional Cognition Training,Functional Mobility,Vision Retraining, Patient/Family Education, Discharge Planning Discharge Recommendations OT Discharge Recommendations SNF Rehab,Acute Rehab Transportation Needs at Discharge Private Vehicle,Wheelchair/ Cabulance
--- NOTE | 2020-11-05 14:51 | CM.DPNOTE ---
Faxed DC clinicals and order to [facility]- on 11/05/20 per Leandra and received fax confirmation. Shyann Soliz CM Asst.
--- NOTE | 2020-11-05 14:55 | PT.IPTN ---
Current Diagnoses Cerebral infarction, unspecified (11/03/20) Physical Therapy Treatment Note M2 PT-IP Current Condition Start: 11/03/20 10:42 Freq: NEEDED Status: Discharge Protocol: Document 11/03/20 16:58 AW (Rec: 11/03/20 17:31 AW [id number]) Physical Therapy Current Condition Current Condition Evaluation Date 11/03/20 Treatment Diagnosis acute CVA; impaired vision; impaired balance; difficulty in walking Onset Date 10/31/20 Precautions Other Precautions chronic serrano M3 PT-IP Subjective Start: 11/03/20 10:42 Freq: NEEDED Status: Discharge Protocol: Document 11/05/20 14:40 SP (Rec: 11/05/20 17:43 SP [id number]) Subjective Physical Therapy Visit Type Type Treatment Note Visit Start Time 14:40 Visit Stop Time 14:55 Total Visit Minutes 15 Notes Pt is willing to participate with PT Number of PRICING MANAGER Visits 1 Physical Therapy Visit Comments Patient Comments Pt willing to work with therapy, stated leaving in about an hour. Patient Goals Get stronger to eventually go back home. Therapy Pain Assessment Pain Present Pain Present Denied Pain M4 PT-IP Mobility and Gait Start: 11/03/20 10:42 Freq: NEEDED Status: Discharge Protocol: Document 11/05/20 14:40 SP (Rec: 11/05/20 17:43 SP [id number]) PT-Bed Mobility Assessment Supine to Sit Supine to Sit Standby Assistance Sit to Supine Sit to Supine Standby Assistance Scooting Scooting to Edge of Bed Standby Assistance PT-Transfer Assessment Sit to and From Stand Sit to and from Stand Standby Assistance,Contact Guard Assistance,Use of Upper Extremities Equipment Transfer Assistive Device None Orthotic/Prosthetic Devices or Brace: No Transfers Transfer Destination Bed,Chair Transfer Technique Stand Step Pivot Transfer Ability Level of Assist Contact Guard Assistance,Use of Upper Extremities Comments Mobility Comments Pt was in bed when arrived. supine> sitting SBA. sit> stand no AD CGA. Pt ambulated further distance into hallway, at times over wt shift to L and cuing for obstacle navigation around end of bed on R and in hallway bumped into free standing sign on R. Pt has decrease R glut strength noted during LLE advancement hard landing and with slight flexed trunk posture tends to over wt shift to L requiring CGA for safety with intermittent cuing for slower pacing, increased posture to allow improved posture. Pt walke approx total 540 ft with no AD CG- Min A as distance progressed to assist with balance. Pt ascended 9 stair L HR CGA step over step but did not complete full 17 stairs as has at home due to decreased activity tolerance. When returned to room performed stationary standing balance: NBOS head turns, EC 30 sec CGA , stagger stance head turns R LE foward and EC 30 sec light deviations but self recovery. RLE forward stagger with intermittent Min A for safety LOB recovery unable to safely perform head turns so stopped . Pt was seated in chair with alarm on and call light and all needs in reach when left. Pt continues to have decreased R peripherial vision and difficulty obstacle navigation on R, and dynamic balance during gait and stationary positions although pt states is improving agrees leaves patient a high fall risk. Recommending continued skilled PT services, SNF to work on strength, balance with LRAD and stair mgt up to 17 stairs to assimulate home environment for safe DC home. Gait Assessment Gait Gait Assistance Required: Standby Assistance,Contact Guard Assist,Minimum Assistance Distance (Feet) 560 Able to Maintain Weight Bearing Status Yes During Gait Assistive Devices Assistive Device Gait Belt Orthotic/Prosthetic Devices or Brace: No Gait Deviations General Gait Pattern Ataxic,Decreased Stride Length ,Decreased Feet Clearance, Flexed Trunk,Lateral Trunk Lean Factors Limiting Gait Function Factors Limiting Gait Function Decreased Sensation,Decreased Strength,Incoordination,Poor Balance,Poor Safety Awareness Comments Gait Comments See mobility comments for details. Stair Climbing Assessment Evaluation Level of Assist On Stairs Contact Guard Assistance Devices Stair Climbing Assistive Devices Left Railing Technique/Endurance Stair Climbing Direction Ascend and Descend Stair Climbing Technique Step Over Step,Step to Step Number of Steps Climbed 3 Stair Climbing Set # Repetitions (reps) 3 Comments Stair Climbing Comments see mobility comments for details. PT-Balance Assessment Sitting Balance and Reactions Static Sitting Balance Ability Normal Dynamic Sitting Balance Ability Normal Standing Balance and Reactions Static Standing Balance Ability Fair Dynamic Standing Balance Ability Poor Device Used no AD M5 PT-IP Objective Assessments Start: 11/03/20 10:42 Freq: NEEDED Status: Discharge Protocol: Document 11/05/20 08:50 [facility] (Rec: 11/05/20 09:01 [facility] [id number]) Orientation Orientation/Cognition Level of Alertness Alert Orientation Name,Situation Language Function Ability No Deficits Noted Comments Affect is flat. Pt requiring increased processing time to answer certain questions. Coordination Assessment Gross Coordination Gross Coordination Impaired M6 PT-IP Treatment Start: 11/03/20 10:42 Freq: NEEDED Status: Discharge Protocol: Document 11/05/20 14:40 SP (Rec: 11/05/20 17:43 SP [id number]) Physical Therapy Treatment Other Treatments Other Treatment Performed standing balance assessment see mobility comments for details. M7 PT-IP Assessment and Plan Start: 11/03/20 10:42 Freq: NEEDED Status: Discharge Protocol: Document 11/05/20 14:40 SP (Rec: 11/05/20 17:43 SP [id number]) PT Summary Assessment and Plan Potential Rehabilitation Potential Good Status of Condition at Evaluation Evolving Summary Impairments Balance,Coordination,Sensation ,Transfers,Gait,Activity Tolerance Progress Towards Goals Progressing Toward Goals Assessment Summary Pt tends to over wt shift to L and decreased R perpherial vision making difficulty obstacle navigation on R. CG- Min during gait no AD, more difficulty requiring more physical and verbal assistance for safety. Pt is a good candidate for acute rehab to improve his safety awareness and learn compensatory strategies to be independent for ADLS/ IADLS etc. Goals Bed Mobility Goal Independent Transfer Goal Independent Gait Goal Independent Gait Distance 500 Other Goals - up/down 17 steps with B rails IND Days to Meet Goals 10 Frequency of Treatment Frequency Of Treatment Twice a Day Treatment Plan Physical Therapy Treatment Plan Bed Mobility Training,Transfer Training,Gait Training, Therapeutic Exercise,Balance Retraining,Discharge Planning, Neuromuscular Re-ed, Coordination Retraining Other Recommendations and Next Treatment high level balance assessment Focus such as Functional Gait Assessment; dynamic balance interventions Recommendations To Nursing Amount of Assist Needed Standby Assistance,1 Person Assist Discharge Recommendations PT Discharge Recommendations Acute Rehab Other Discharge Recommendations At this time feel patient will need acute rehab at discharge from hospital. Transportation Needs at Discharge Wheelchair/Cabulance
== END 2020-11-05 15:50 | DRG 65 ==
LOC: ED 08:37 → AC 09:07
PROVIDERS: Admitting Provider Internal Medicine; Emergency Provider Emergency Medicine; Referring Provider Emergency Medicine; Visit Provider Internal Medicine
DX: I63.9 Cerebral infarction, unspecified (principal); N17.9 Acute kidney failure, unspecified; N18.4 Chronic kidney disease, stage 4 (severe); N30.00 Acute cystitis without hematuria; N13.8 Other obstructive and reflux uropathy; H53.451 Other localized visual field defect, right eye; I12.9 Hypertensive chronic kidney disease with stage 1 through stage 4 chronic kidney disease, or unspecified chronic kidney disease; E11.22 Type 2 diabetes mellitus with diabetic chronic kidney disease; R47.9 Unspecified speech disturbances; N40.1 Benign prostatic hyperplasia with lower urinary tract symptoms; E11.65 Type 2 diabetes mellitus with hyperglycemia; Z96.0 Presence of urogenital implants; Z86.73 Personal history of transient ischemic attack (TIA), and cerebral infarction without residual deficits; Z20.828 Contact with and (suspected) exposure to other viral communicable diseases; Z23 Encounter for immunization
CPT/HCPCS: 36415; 70450; 70551; 80053; 80061; 81003; 81015; 82550; 82962; 83036; 83735; 83880; 84443; 84484; 85025; 87077; 87086; 87186; 87635; 90471; 90662; 92507; 92523; 93005; 93306; 93880; 97112; 97116; 97162; 97166; 97530; 97535; 99283; 99285; J1644; J1956